=== PATIENT | male | born 1945 | race Caucasian/White ===

== ENCOUNTER → 2019-11-07 11:22 | Outpatient (CLI) | payer MEDICARE, BC, SELFPAY ==
[2019-11-07 12:54] LABS: Blood Urea Nitrogen 15 mg/dL (7-18); Creatinine,Serum 0.97 mg/dL (0.70-1.30); Estimated Glomerular Filt Rate 75 ml/min (>60); GFR (African American) 91 ML/MIN (>60)
== END ==
DX: Z01.818 Encounter for other preprocedural examination (principal); L98.9 Disorder of the skin and subcutaneous tissue, unspecified
CPT/HCPCS: 36415; 82565; 84520

== ENCOUNTER → 2019-11-08 09:26 | Outpatient (CLI) | payer MEDICARE, BC, SELFPAY ==
--- NOTE | 2019-11-08 09:29 | CT_ITS ---
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 All CT scans at the facility use one or more dose reduction, viz: automated exposure control, ma/kV adjustment per patient size (including targeted exams where dose is matched to indication, i.e. head), or iterative reconstruction technique. FINDINGS: Axial images are obtained without and with contrast. No midline shift, mass effect, intracranial hemorrhage, hydrocephalus, or enhancing lesion is evident. There is generalized atrophy with periventricular ischemic gliotic changes. 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 No intracranial enhancing lesions are evident. There is a cutaneous mass involving the left ear the external ear anteriorly at the region of the helix and superior to the tragus. This extends anteriorly are for a nearly 3 cm and is 0.8 cm in thickness. This does not extend to the bone. No mastoid effusion or sinus air-fluid level. IMPRESSION: 1. No evidence of intracranial metastasis. 2. Atrophy with chronic ischemic changes. 3. 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 Dictated by: Moise Andino MD 11/08/2019 17:00 Electronically signed by Moise Andino MD in [place] 11/08/2019 17:00
--- NOTE | 2019-11-08 09:29 | CT_ITS ---
PROCEDURE: CT SOFT TISSUE NECK W CON CLINICAL HISTORY: Squamous cell carcinoma above the left ear, evaluate for lymphadenopathy COMPARISON: No exams were available for comparison TECHNIQUE: Oral Contrast: 75ml Optiray 350 IV Contrast: None Axial images obtained with sagittal and coronal reformats. All CT scans at the facility use one or more dose reduction, viz: automated exposure control, ma/kV adjustment per patient size (including targeted exams where dose is matched to indication, i.e. head), or iterative reconstruction technique. FINDINGS: There is a cutaneous mass along the anterior aspect of the left ear beginning at the helix area superior to the tragus and extending anteriorly for a length 3 cm and a depth of 1.2 cm.. There does appear to be a fat plane preserved between the cutaneous lesion and the underlying posterior aspect of the temporalis muscle. Lesion does not appear to be involving the parotid gland. No cervical adenopathy evident. No bony involvement. The epiglottis, glottic region, and subglottic area are unremarkable. Submandibular glands are unremarkable. There are 2 nodules of the right lobe of the thyroid gland the largest at 1.7 by 1.1 cm with a smaller lesion at 0.8 cm. There also appears to be a nodule of the lower pole of the left lobe at 1.1 cm. There are centrilobular emphysematous changes in the lung apices. IMPRESSION: 1. Cutaneous mass along the left ear anteriorly consistent with patient's known squamous cell carcinoma. There does not appear to be gross deep musculature, bony, or parotid involvement 2. No obvious cervical adenopathy 3. Bilateral thyroid nodules measuring up to 1.7 cm on the right which may be better evaluated with ultrasound Dictated by: Moise Andino MD 11/09/2019 07:45 Electronically signed by Moise Andino MD in [place] 11/09/2019 07:45
== END ==
PROVIDERS: PCP Family Medicine
DX: K13.0 Diseases of lips (principal); L98.9 Disorder of the skin and subcutaneous tissue, unspecified
CPT/HCPCS: 70470; 70491

== ENCOUNTER → 2020-03-22 09:47 | Outpatient (CLI) | payer MEDICARE, BC, SELFPAY ==
[2020-03-23 09:59] LABS: Covid-19 Nasal PCR Sendout Lex NOT DETECTED
--- NOTE | 2020-03-23 10:33 | PC.NURSE ---
1033 dr. miller notified of negative COVID-19 RESULTS 1035 PT NOTIFIED OF NEGATIVE COVID-19 RESULT, RESULTS FAXED TO DERMATOLOGY OFFICE
== END ==
PROVIDERS: Visit Provider Dermatology MOHS-Micrographic Surgery
DX: Z03.818 Encounter for observation for suspected exposure to other biological agents ruled out
CPT/HCPCS: U0003

== ENCOUNTER 2021-11-15 10:12 | Emergency (ER) | payer MEDICARE, BC, SELFPAY ==
[2021-11-15 10:14] VITALS: BP 175/97; PULSE 57; RESP 18; TEMP 36.6; O2SAT 98; BMI 20.3; BMI 21.7
--- NOTE | 2021-11-15 10:24 | CT_ITS ---
PROCEDURE INFORMATION: Exam: CT Head Without Contrast Exam date and time: 11/15/2021 10:24 AM Age: 76 years old Clinical indication: Injury or trauma; Blunt trauma (contusions or hematomas); Injury details: Fall laceration lt forehead; Additional info: Fall head injury, takes plavix. History of squamous cell carcinoma left ear TECHNIQUE: Imaging protocol: Computed tomography of the head without contrast. Radiation optimization: All CT scans at this facility use at least one of these dose optimization techniques: automated exposure control; mA and/or kV adjustment per patient size (includes targeted exams where dose is matched to clinical indication); or iterative reconstruction. COMPARISON: CT HEAD/BRAIN WO/W CON 11/08/2019 10:32 AM FINDINGS: Brain: No acute intracranial findings. No intracranial hemorrhage. No edema, swelling or mass-effect. There is mild to moderate generalized cerebral atrophy. There are chronic infarcts of medial left occipital lobe cortex and adjacent white matter, and involving the anterior capsule and head of caudate nucleus on the left, and tiny lesion in left basal ganglia, which are unchanged. Chronic patchy white matter disease in both cerebral hemispheres. Cerebral ventricles: The ventricles are normal for age. No hydrocephalus. Paranasal sinuses: No acute findings in the visualized sinuses. No significant sinus opacification or air-fluid levels. Mild bilateral ethmoid mucosal thickening. Mastoid air cells: Mastoids are unremarkable as visualized, no effusions. Orbital cavity: No acute intraorbital findings. Findings of bilateral lens replacement surgeries. Vasculature: There are atherosclerotic calcified plaques in the intracranial carotid and vertebral arteries. Bones/joints: No acute skull fracture. No lytic lesions. Soft tissues: Left frontal scalp contusion with small cephalhematoma.No radiopaque foreign bodies seen. Chronic left auricular asymmetric cutaneous thickening, no interval change, previously reported corresponding with site of previous squamous cell carcinoma series 3, image 5. IMPRESSION: 1. No acute intracranial injury or skull fracture. 2. There is no CT evidence of intracranial mass, intracranial hemorrhage, or acute infarct. 3. Chronic senescent changes and old ischemic infarcts as detailed above. No acute intracranial findings compared with 11/08/2019. 4. Left frontal scalp contusion with small cephalhematoma. 5. Additional nonemergency and chronic findings as above.
--- NOTE | 2021-11-15 10:25 | CT_ITS ---
PROCEDURE INFORMATION: Exam: CT Cervical Spine Without Contrast Exam date and time: 11/15/2021 10:25 AM Age: 76 years old Clinical indication: Injury or trauma; Blunt trauma; Injury date: 11/15/21; Injury details: Fall laceration to lt forehead . History of squamous cell carcinoma. TECHNIQUE: Imaging protocol: Computed tomography images of the cervical spine without contrast. Radiation optimization: All CT scans at this facility use at least one of these dose optimization techniques: automated exposure control; mA and/or kV adjustment per patient size (includes targeted exams where dose is matched to clinical indication); or iterative reconstruction. COMPARISON: CT SOFT TISSUE NECK W CON 11/08/2019 10:28 AM FINDINGS: Bones/joints: No acute fracture or high-grade listhesis. There is minimal degenerative anterolisthesis at C6-C7 and C7-T1 levels of approximately 2 mm, which is chronic compared with the prior CT. Multilevel cervical facet arthropathy, greatest at the C4-C5 through C7-T1 levels. No high-grade listhesis. There are no lytic skeletal lesions seen. Mild degenerative osteoarthrosis anteriorly at C1-C2 with small periarticular spurs and some soft tissue calcifications. Discs/Spinal canal/Neural foramina: Degenerative disc disease and spondylosis at C3-C4 through C7-T1 levels. Discs and osteophytes indent the thecal sac, minimally narrowing the central spinal canal, but there is no high grade spinal stenosis. There are lateral uncovertebral spurs greatest toward the left at C3-C4, toward the right at C4-C5, C5-C6. There is multilevel foraminal stenosis due to posterolateral disc-osteophyte complexes and facet hypertrophy. Foraminal stenoses appear moderately severe at the left C4 foramen and right C6 foramina, and moderate to moderately severe at the C5 foramina and right C7 foramen, [id number] at other levels. Thyroid: Chronic thyroid nodules, largest nodule on the right approximate 1.7 cm as reported on the prior exam, series 4, image 77. Lungs: There is a chronic 9 mm soft tissue nodular density in the anterior right lung apex, series 3, images 84-86, but this is unchanged compared with 11/08/2019. There is chronic bilateral apical pulmonary interstitial scarring. No acute findings in the visualized lung apices. Vasculature: Atherosclerotic calcified plaques in the cervical carotid arteries. Soft tissues: No acute findings in the soft tissues. No prevertebral swelling. No organized hematoma. Chronic calcifications in the tonsillar pillars and base of tongue consistent with old healed infection. 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 IMPRESSION: 1. No acute fracture or high-grade listhesis. 2. Multilevel degenerative disc disease, spondylosis, and facet arthropathy as detailed above with some chronic mild subluxations. 3. No significant central spinal stenosis. 4. Multilevel foraminal stenoses, which appear greatest at the C4 through C6 foramina as detailed above. 5. Additional nonemergency and chronic findings as above, including 9 mm right apical pulmonary nodule unchanged, and chronic 1.7 cm right thyroid nodule, unchanged. COMMENTS: Consistent with the [employer]'s Incidental Findings Committee white paper (J Am Laura Radiol 2015): In patients aged 35 years and older with an incidental thyroid nodule equal to or greater than 1.[address], MRI or extrathyroidal US, further evaluation with dedicated thyroid US is recommended for patients with normal life expectancy and without comorbid
--- NOTE | 2021-11-15 10:26 | XR_ITS ---
PROCEDURE INFORMATION: Exam: XR Left Hand Exam date and time: 11/15/2021 10:26 AM Age: 76 years old Clinical indication: Injury or trauma; Fall; Blunt trauma (contusions or hematomas); Hand; Left; Injury date: 11/15/21; Injury details: Laceration to 2nd and third knuckle TECHNIQUE: Imaging protocol: XR Left hand. Views: 3 or more views. COMPARISON: No relevant prior studies available. FINDINGS: Bones/joints: Osteopenia. No definite acute fracture or dislocation. 1 mm calcification abutting the tip of the ulnar styloid process which may be chronic and degenerative or due to old trauma rather than acute in nature. Specifically, bones at the 2nd and 3rd MCP joints appear intact and normally aligned. Mild degenerative arthritic changes greatest in the thumb, with joint narrowing at 1st carpal-metacarpal, MCP and IP joints, some small periarticular spurs, and minimal soft tissue calcification interposed between bases of 1st and 2nd metacarpal bones. Slight narrowing of PIP joints. There are no lytic skeletal lesions seen. No erosive changes. Soft tissues: The soft tissue laceration to the knuckles is suboptimally visualized, there is slight irregularity of the skin at the dorsal aspect of the hand. No radiopaque foreign bodies in the soft tissues. No significant soft tissue emphysema. IMPRESSION: 1. No acute fracture or dislocation. 2. No radiopaque foreign bodies in the soft tissues. 3. Chronic degenerative changes, as above.
--- NOTE | 2021-11-15 13:27 | [facility].EDGENADL ---
ED Disposition Clinical Impression: Forehead contusion Qualifiers: Encounter type: initial encounter Qualified Code(s): S00.83XA - Contusion of other part of head, initial encounter Forehead abrasion Qualifiers: Encounter type: initial encounter Qualified Code(s): S00.81XA - Abrasion of other part of head, initial encounter Skin tear of hand without complication Qualifiers: Encounter type: initial encounter Laterality: left Qualified Code(s): S61.412A - Laceration without foreign body of left hand, initial encounter Disposition: Home, Self-Care Condition on Discharge: Good Instructions: DI for Closed Head Injury, DI for Abrasion Additional Instructions: Clean abrasions daily with soap and water, apply Neosporin or Polysporin ointment and bandage. Tylenol as needed for pain. Additional instructions for HEAD INJURY: Return immediately if severe headache, vomiting, problems with vision or speech, numbness or weakness of the extremities, or severe neck pain. Referrals: Vincenzo Tyson MD [Primary Care Provider] - - Critical Care Critical Care Time: No Attestation: On 11/15/21, the high probability of a clinically significant, sudden or life threatening deterioration of the following system(s) required my full and direct attention, intervention and personal management. The time I documented below is in addition to time spent performing reported procedures but includes the following listed in this critical care notation. Medical Decision Making - Cali Inquiry Pt receiving controlled substance: No Vital Signs: 11/15/21 10:14 Temperature 98 F Temperature Source Oral Pulse Rate [Radial] 57 L Respiratory Rate 18 Blood Pressure [Right Arm] 175/97 H Blood Pressure Mean [Right Arm] 123 Blood Pressure Position [Right Arm] Sitting 02 Sat by Pulse Oximetry 98 Oxygen Delivery Method Room Air Orders (Tests/Meds): ED MEDICATIONS Discontinued Medications Generic Name Dose Route Start Last Admin Trade Name Freq PRN Reason Stop Dose Admin Tetanus/Reduced Diphtheria/Acell Pertussis 0.5 ml 11/15/21 10:26 11/15/21 13:42 Tet/Diphth/Pert-Adult 0.5ml Syringe IM 11/15/21 10:27 0.5 ml .ONCE ONE Administration - Radiology Data #1 Image(s): Hand Image Reviewed: Yes I reviewed the patient's radiology image PROCEDURE INFORMATION: Exam: XR Left Hand Exam date and time: 11/15/2021 10:26 AM Age: 76 years old Clinical indication: Injury or trauma; Fall; Blunt trauma (contusions or hematomas); Hand; Left; Injury date: 11/15/21; Injury details: Laceration to 2nd and third knuckle TECHNIQUE: Imaging protocol: XR Left hand. Views: 3 or more views. COMPARISON: No relevant prior studies available. FINDINGS: Bones/joints: Osteopenia. No definite acute fracture or dislocation. 1 mm calcification abutting the tip of the ulnar styloid process which may be chronic and degenerative or due to old trauma rather than acute in nature. Specifically, bones at the 2nd and 3rd MCP joints appear intact and normally aligned. Mild degenerative arthritic changes greatest in the thumb, with joint narrowing at 1st carpal-metacarpal, MCP and IP joints, some small periarticular spurs, and minimal soft tissue calcification interposed between bases of 1st and 2nd metacarpal bones. Slight narrowing of PIP joints. There are no lytic skeletal lesions seen. No erosive changes. Soft tissues: The soft tissue laceration to the knuckles is suboptimally visualized, there is slight irregularity of the skin at the dorsal aspect of the hand. No radiopaque foreign bodies in the soft tissues. No significant soft tissue emphysema. IMPRESSION: 1. No acute fracture or dislocation. 2. No radiopaque foreign bodies in the soft tissues. 3. Chronic degenerative changes, as above. - CT Data CT Scan: Head, C-Sp
[2021-11-15 14:00] VITALS: BP 168/87; PULSE 60; RESP 16; TEMP 36.8; O2SAT 98
== END 2021-11-15 14:00 | disposition home or self-care (01) ==
PROVIDERS: Emergency Provider Emergency Medicine; PCP Family Medicine
DX: S00.83XA Contusion of other part of head, initial encounter (principal); S00.81XA Abrasion of other part of head, initial encounter; S61.412A Laceration without foreign body of left hand, initial encounter; W18.00XA Striking against unspecified object with subsequent fall, initial encounter; Y92.018 Other place in single-family (private) house as the place of occurrence of the external cause; F17.210 Nicotine dependence, cigarettes, uncomplicated; Z23 Encounter for immunization
CPT/HCPCS: 70450; 72125; 73130; 90471; 90715; 99282

== ENCOUNTER 2023-08-30 08:15 | Emergency (ER) | payer MEDICARE, BC, SELFPAY ==
[2023-08-30] VITALS (9 sets, daily range): BP systolic 130–196; BP diastolic 76–90; PULSE 50–60; RESP 17–18; TEMP 36.4; O2SAT 96–99; BMI 19.0
--- NOTE | 2023-08-30 08:26 | PC.NURSE ---
Dr. Dye at [facility] for pt eval
--- NOTE | 2023-08-30 08:31 | CT_ITS ---
FINAL REPORT CLINICAL HISTORY: RLQ pain/R flank pain COMPARISON: None FINDINGS: CT OF THE ABDOMEN AND PELVIS WITH CONTRAST Axial CT images of the abdomen and pelvis were obtained after the administration of IV contrast. Coronal reformatted images were also obtained and reviewed. This study was performed with techniques to keep radiation doses as low as reasonably achievable (ALARA). Individualized dose reduction techniques using automated exposure control or adjustment of mA and/or kV according to the patient's size were employed. Abdomen: There is a 6 mm pleural-based nodule in the lateral left right lower lobe. There is mild bibasilar atelectasis or scar. The heart is normal in size. The liver has an unremarkable appearance, without evidence of mass or biliary ductal dilatation. Gallbladder is absent. The spleen is unremarkable. There is a 4 cm right adrenal mass. The left adrenal gland is enlarged with a 1.5 cm nodular component. These do not have the appearance of typical adenomas. Metastases are not excluded. The pancreas has an unremarkable appearance. There is a 3 mm nonobstructing left renal stone. The aorta is normal in caliber. There is a 12 mm left abdominal mesenteric node. There are multiple small retroperitoneal nodes which are nonspecific, and favored to be reactive or neoplastic. Pelvis: The appendix is not well-visualized. The urinary bladder is unremarkable. There is a soft tissue nodule in the right anterior pelvis measuring 2.4 x 1.9 cm seen on axial image 91 of uncertain etiology which may reflect adenoma or other mass. There is severe sigmoid diverticulosis. There is no evidence of bowel obstruction. 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 Metastases are not excluded. Right lower lobe nodule, granuloma versus neoplasm. Right anterior pelvic mass, adenopathy versus other mass. Recommend follow-up PET/CT for further evaluation of the above. Reviewed, Interpreted and Dictated by Johnny Barrera III, MD Transcribed by Anna Marie Lepe Authenticated and . [facility]
--- NOTE | 2023-08-30 08:49 | HMH.EDGENADL ---
Discharge Plan Disposition Patient Disposition: Home, Self-Care Prescriptions Prescriptions: New oxycodone 5 mg tablet 5 mg PO Q8H PRN (Reason: pain) Qty: 12 0RF Rx Instructions: Severe pain not responsive to Tylenol and ibuprofen. No Action atorvastatin 40 MG tablet 40 mg PO HS hydralazine 10 MG tablet 10 mg PO DAILY atenolol 100 MG tablet 100 mg PO DAILY phenytoin sodium extended 100 MG capsule 100 mg PO DAILY clopidogrel 75 MG tablet 75 mg PO DAILY ramipril 10 MG capsule 10 mg PO DAILY clindamycin HCl 300 MG capsule 300 mg PO Q8 10 Days Qty: 30 0RF Referrals Follow up/Referrals: Renae Cortes MD [Staff Physician] - See instructions Provider,Referral, [Primary Care Provider] - See instructions Activity Restrictions/Add. Instructions Additional Instructions/Restrictions: At this time is felt you are safe to be discharged home. If new or worsening symptoms please do not hesitate to return the emergency department. Please continue to follow-up outpatient with Dr. Cortes as discussed. Please take your medication as prescribed. Clinical Impressions Clinical Impression: Abdominal or pelvic swelling, mass or lump, unspecified site, Adrenal mass Discharge ED Provider: Doc Dye General Adult HPI General Chief complaint: Abdominal Pain Stated complaint: back and Rt side pain, no accident Time Seen by Provider: 08/30/23 08:19 History of Present Illness HPI narrative: Patient is a 77-year-old male with remote history of hernia status post repair, status postcholecystectomy presents emergency department for evaluation of abdominal pain. Onset was acute, over the last 24 hours, right lower quadrant, moderate to severe in intensity. It radiates into his right flank. Still voiding and stooling. No other acute complaints at this time. Related Data Home Medications Medication Instructions Recorded Confirmed atenolol 100 mg tablet 100 mg PO DAILY Hypertension 09/09/19 09/09/19 atorvastatin 40 mg tablet 40 mg PO HS Cholesterol 09/09/19 09/09/19 clopidogrel 75 mg tablet 75 mg PO DAILY HEART 09/09/19 09/09/19 hydralazine 10 mg tablet 10 mg PO DAILY Hypertension 09/09/19 09/09/19 phenytoin sodium extended 100 mg 100 mg PO DAILY SEIZURES 09/09/19 09/09/19 capsule ramipril 10 mg capsule 10 mg PO DAILY Hypertension 09/09/19 09/09/19 Previous Rx's Medication Instructions Recorded clindamycin HCl 300 mg capsule 300 mg PO Q8 10 days #30 caps 09/09/19 oxycodone 5 mg tablet 5 mg PO Q8H PRN pain #12 tabs 08/30/23 Allergies Allergy/AdvReac Type Severity Reaction Status Date / Time indomethacin [From INDOCIN] Allergy Unknown SEIZURES Verified 11/15/21 13:42 [facility] Disclaimer: The information contained in this section may have been updated after the patient was seen, as this information can be updated by other users. Social History Smoking Status: Current some day smoker tobacco type: cigarettes packs per day: 1 alcohol intake: never current occupational status: other Travel in the last 8 weeks: None ROS Obtained: Yes Systems reviewed as appropriate & no additional complaints except as documented Physical Exam General General appearance: alert and in no apparent distress Head Head exam: atraumatic and normocephalic Eye Eye exam: Present PERRL and EOMI ENT ENT exam: Present mucous membranes moist Neck Neck exam: Present normal inspection Chest Chest inspection: Present normal inspection and symmetric chest wall rise Respiratory Respiratory exam: Present normal lung sounds bilaterally; Absent respiratory distress Cardiovascular Cardiovascular exam: Present regular rate and normal rhythm Abdominal Exam Abdominal exam: Present soft and tenderness (Right lower quadrant); Absent rigidity Extremities Exam Extremities exam: Present normal inspection Neurological Exam Neurological exam: Present alert Psychiatric Psychiatric
[2023-08-30 09:02] LABS: Basophils % 0.3 % (0.1-2.0); Eosinophils # 0.1 K/mm3 (0.0-0.4); Hematocrit 42.5 % (42.0-52.0); Hemoglobin 13.8 g/dL (14.1-18.0); Lymphocytes # 1.3 K/mm3 (0.7-4.5); Lymphocytes % 11.9 % (10-50); Mean Corpuscular HGB Conc 32.4 g/dL (31.8-35.4); Mean Corpuscular Hemoglobin 31.9 pg (27.0-31.2); Mean Corpuscular Volume 98.4 fl (80-94); Mean Platelet Volume 7.6 fl (7.4-10.4); Monocytes # 0.5 K/mm3 (0.1-1.0); Monocytes % 4.8 % (1.7-9.3); Neutrophils # 8.9 K/mm3 (1.8-7.8); Neutrophils % 82.1 % (37.0-80.0); Platelet Count 367 K/mm3 (142-424); Red Blood Count 4.32 M/mm3 (4.60-6.20); Red Cell Distribution Width 14.1 % (11.5-17.5); White Blood Count 10.8 K/mm3 (4.8-10.8)
[2023-08-30 09:11] LABS: Alanine Aminotransferase 17 U/L (12-78); Albumin Level 3.8 g/dl (3.5-5.0); Alkaline Phosphatase 133 U/L (38-126); Anion Gap 12.8 mEq/L (5-15); Aspartate Amino Transferase 25 U/L (17-59); Bilirubin,Total 0.5 mg/dl (0.2-1.3); Blood Urea Nitrogen 15 mg/dl (9-20); Calcium 8.5 mg/dl (8.4-10.2); Carbon Dioxide 24 mmol/L (22.0-30.0); Chloride 105 mmol/L (98-107); Estimated Glomerular Filt Rate 130 ml/min (>60); GFR (African American) 158 ML/MIN (>60); Glucose 170 mg/dl (74-100); Lipase 57 U/L (23-300); Potassium 3.8 mmoL/L (3.5-5.1); Sodium 138 mmol/L (136-145); Total Protein,Serum 7.8 g/dl (6.3-8.2)
[2023-08-30 09:50] LABS: Creatinine Clearance Estimated 55 mL/min (50-200)
[2023-08-30 09:52] LABS: Microscopic, Urine URINE MICROSCOPIC (MICROSCOPIC)
--- NOTE | 2023-08-30 09:59 | PC.NURSE ---
PT TO CT
[2023-08-30 10:03] LABS: Appearance,Urine CLEAR (Clear); Bilirubin,Urine Negative (Negative); Blood, Urine Negative (Negative); Color,Urine YELLOW (Yellow); Glucose,Urine (UA) Negative (Negative); Ketones,Urine 1+ (Negative); Leukocyte Esterase,Urine Negative (Negative); Nitrate,Urine Negative (Negative); Protein,Urine Negative (Negative); Urobilinogen,Urine 0.2 EU/dl (0.2)
--- NOTE | 2023-08-30 10:09 | PC.NURSE ---
pt was adjusted in bed covered back up did state he was still having back pain, nurses and er md aware, call light and daughter at bs
--- NOTE | 2023-08-30 10:11 | PC.NURSE ---
Zohaib lee called stating pt's IV would not flush, asked for someone to start new line. Pt is in the upstairs CT. zone supervisor firearms is available to check IV.
[2023-08-30 10:36] LABS: Squamous Epithelial Cell,Urine Occasional #/hpf (0-5); WBC,Urine Occasional #/hpf (0-3)
--- NOTE | 2023-08-30 10:44 | PC.NURSE ---
Pt visitor advised that pt was still in pain. Dr. Dye notified.
--- NOTE | 2023-08-30 10:49 | PC.NURSE ---
Dr. Dye at to reevaluate pt
--- NOTE | 2023-08-30 10:59 | PC.NURSE ---
Pt assisted to stand and use urinal. Pt voiced no other needs at this time. Call light within reach.
--- NOTE | 2023-08-30 11:33 | PC.NURSE ---
Called [facility] to have them check the status of CT scan read
--- NOTE | 2023-08-30 11:37 | PC.NURSE ---
Updated pt/visitor that we are waiting on CT reports. They voiced understanding. No other needs voiced.
--- NOTE | 2023-08-30 11:41 | PC.NURSE ---
DR CLOUD AT BEDSIDE
--- NOTE | 2023-08-30 11:42 | PC.NURSE ---
Dr. Dye at [facility] to update pt/visitor on POC
--- NOTE | 2023-08-30 11:55 | PC.NURSE ---
ca;;ed [facility] for a consult with Oncology. Was put on hold wjile waiting. [facility] came back online and had Dr. Wilks to speak with our ER Doctor.
--- NOTE | 2023-08-30 11:58 | PC.NURSE ---
Pt placed on wait list at . Calling [facility] at this time.
--- NOTE | 2023-08-30 12:03 | PC.NURSE ---
called [facility] per ER Doctor to consult with Oncology about this Pt. [facility] took all the info and advised they would call back as soon as they made contact with the Oncologist.
--- NOTE | 2023-08-30 12:06 | PC.NURSE ---
[facility] just called back and ER Doctor speaking with Dr. Chase Reyes
--- NOTE | 2023-08-30 12:17 | PC.NURSE ---
Waiting for call back from hospitalist at this time
--- NOTE | 2023-08-30 12:32 | PC.NURSE ---
Dr. Dye speaking with hospitalist at [facility]
--- NOTE | 2023-08-30 12:33 | PC.NURSE ---
[facility] called back. a Dr Noyola to speak with our ER Doctor
--- NOTE | 2023-08-30 12:44 | PC.NURSE ---
Dr. Dye advised he will be discharging pt to follow up outpatient
--- NOTE | 2023-08-30 13:03 | PC.NURSE ---
let pt & his family know of the appt with Dr. Cortes date & time. Discharge instruction reviewed with pt & family.
--- NOTE | 2023-08-30 13:03 | PC.NURSE ---
Pt has a follow up appointment with Dr. Cortes on 09/02 in specialty clinic
== END 2023-08-30 13:56 | disposition home or self-care (01) ==
PROVIDERS: Emergency Provider Emergency Medicine
DX: R10.31 Right lower quadrant pain (principal); R19.00 Intra-abdominal and pelvic swelling, mass and lump, unspecified site; E27.8 Other specified disorders of adrenal gland
CPT/HCPCS: 74177; 80053; 81001; 83690; 85025; 96361; 96374; 96375; 99285; J0131; Q9967

== ENCOUNTER 2023-09-30 14:52 | Outpatient (CLI) | payer MEDICARE, BC, SELFPAY ==
[2023-09-30 15:08] VITALS: BMI 19.2
--- NOTE | 2023-09-30 15:17 | PC.NURSE ---
1517-collected labs via venipuncture stick in left ac; pt d/c home.
[2023-09-30 15:23] LABS: Basophils % 0.3 % (0.1-2.0); Eosinophils # 0.3 K/mm3 (0.0-0.4); Eosinophils % 3.4 % (0.1-12.0); Hematocrit 26.5 % (42.0-52.0); Hemoglobin 9.1 g/dL (14.1-18.0); Lymphocytes # 1.4 K/mm3 (0.7-4.5); Lymphocytes % 13.4 % (10-50); Mean Corpuscular HGB Conc 34.4 g/dL (31.8-35.4); Mean Corpuscular Hemoglobin 34.3 pg (27.0-31.2); Mean Corpuscular Volume 99.7 fl (80-94); Mean Platelet Volume 8.9 fl (7.4-10.4); Monocytes # 0.7 K/mm3 (0.1-1.0); Monocytes % 6.4 % (1.7-9.3); Neutrophils # 7.7 K/mm3 (1.8-7.8); Neutrophils % 76.4 % (37.0-80.0); Platelet Count 336 K/mm3 (142-424); Red Blood Count 2.66 M/mm3 (4.60-6.20); Red Cell Distribution Width 15.2 % (11.5-17.5); White Blood Count 10.1 K/mm3 (4.8-10.8)
[2023-09-30 15:37] LABS: Alanine Aminotransferase 19 U/L (12-78); Albumin Level 3.3 g/dl (3.5-5.0); Alkaline Phosphatase 113 U/L (38-126); Anion Gap 12.4 mEq/L (5-15); Aspartate Amino Transferase 30 U/L (17-59); Bilirubin,Total 0.8 mg/dl (0.2-1.3); Blood Urea Nitrogen 18 mg/dl (9-20); Calcium 7.9 mg/dl (8.4-10.2); Carbon Dioxide 25 mmol/L (22.0-30.0); Chloride 102 mmol/L (98-107); Creatinine Clearance Estimated 55 mL/min (50-200); Estimated Glomerular Filt Rate 109 ml/min (>60); GFR (African American) 132 ML/MIN (>60); Globulin 3.3 g/dL (1.3-3.2); Glucose 106 mg/dl (74-100); Potassium 3.4 mmoL/L (3.5-5.1); Sodium 136 mmol/L (136-145); Total Protein,Serum 6.6 g/dl (6.3-8.2)
--- NOTE | 2023-11-05 15:10 | DIET.NUTRFU ---
Chemo consult, patient has lung Ca and taking pembrolizumab. Reported no side effects, wt stable. Provided contact information for future considers.
== END 2023-09-30 15:17 | disposition home or self-care (01) ==
LOC: INF 14:53
PROVIDERS: PCP Internal Medicine Medical Oncology; Visit Provider Internal Medicine Medical Oncology
DX: E27.8 Other specified disorders of adrenal gland (principal)
CPT/HCPCS: 36415; 80053; 85025

== ENCOUNTER → 2023-10-01 17:08 | Outpatient (CLI) | payer MEDICARE, BC, SELFPAY ==
--- NOTE | 2023-10-01 17:14 | MR_ITS ---
PROCEDURE INFORMATION: Exam: MR Head Without and With Contrast Exam date and time: 10/01/2023 5:18 PM Age: 78 years old Clinical indication: Other: Abnormal pet findings; Additional info: Due to findings on pet scan. Lung, adrenal and thyroid cancer TECHNIQUE: Imaging protocol: Magnetic resonance imaging of the head without and with contrast. 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 There is an old hemorrhagic lacunar type infarct in the caudate nucleus head and adjacent corpus striatum. Small region of chronic encephalomalacia present in the left occipital lobe posteriorly is unchanged. No acute infarct. No acute hemorrhage. Stable involutional changes of the brain. No mass effect. No abnormal enhancement on postcontrast imaging. Focus of hemosiderin staining in the left temporal lobe is likely related to prior hypertensive microhemorrhage. Cerebral ventricles: Stable ventricular size. No ventriculomegaly. Bones/joints: Unremarkable. Paranasal sinuses: Normal as visualized. No acute sinusitis. Mastoid air cells: Normal as visualized. No mastoid effusion. Orbital cavities: Unremarkable. Soft tissues: Unremarkable. IMPRESSION: No acute intracranial abnormality. No intracranial metastatic disease identified.
== END ==
PROVIDERS: PCP Family Medicine; Visit Provider Internal Medicine Medical Oncology
DX: E27.8 Other specified disorders of adrenal gland (principal)
CPT/HCPCS: 70553; 88173; 88305; 88341; 88342; 88360; A9576

== ENCOUNTER 2023-10-04 06:52 | Outpatient (CLI) | payer MEDICARE, BC, SELFPAY ==
[2023-10-04] VITALS (8 sets, daily range): BP systolic 130–144; BP diastolic 71–77; PULSE 57–67; RESP 14–18; TEMP 36.4–36.5; O2SAT 95–100; BMI 18.3
--- NOTE | 2023-10-04 07:10 | US_ITS ---
FINAL REPORT CLINICAL HISTORY: ABN PET SCAN COMPARISON: None FINDINGS: THYROID ULTRASOUND: The right lobe of the thyroid gland measures 4.7 x 1.8 x 1.6 cm in size. The dominant mass in the right thyroid gland is in the lower pole, measures 1.5 cm in diameter, is mixed cystic and solid, and a TI-RADS 4 category nodule. Several other smaller nodules are present. The left lobe of the thyroid gland measures 5 x 1.8 x 1.5 cm in size. The dominant mass in the left thyroid gland is in the lower pole, measures 1.5 cm in diameter, and is also a TI-RADS category 4 nodule. Several other smaller nodules are present as well. The isthmus is normal in appearance and measures 4 mm in thickness. IMPRESSION: The right lower pole dominant nodule is a 1.5 cm in diameter TI-RADS category 4 nodule, which according to TI-RADS criteria should be biopsied. The left lower pole dominant nodule is a 1.5 cm in diameter TI-RADS category 4 nodule, which according to TI-RADS criteria should also be biopsied. Reviewed, Interpreted and Dictated by Arsenio Rodríguez MD Transcribed by Yvrose Levine Authenticated and . [facility]
--- NOTE | 2023-10-04 07:16 | CT_ITS ---
FINAL REPORT CLINICAL HISTORY: bx FINDINGS: CT GUIDED LEFT ADRENAL MASS BIOPSY HISTORY: Left lung mass/bilateral adrenal masses. ATTENDING PHYSICIAN: Dr. Rodríguez PHYSICIAN SPECIAL CERTIFICATE DICTATOR: Erna Awan PA-C CONSCIOUS SEDATION: Was provided by anesthesia service, not radiology. Continuous vital sign monitoring was also performed by anesthesia throughout the procedure. TECHNIQUE: Informed consent was obtained from the patient. A time-out procedure was performed. The left lower back was prepped in a routine sterile fashion and locally anesthetized with 1% lidocaine. Using CT guidance a 19 gauge guide needle was directed toward the left adrenal mass. The needle was positioned within the outer periphery of the lesion. Coaxial technique was utilized. A total of four 22-gauge FNA passes were made. An attempt was made to do a 20-gauge core, but no tissue could be obtained. CT-guidance was utilized for this procedure. Limited postbiopsy CT showed no evidence of significant pneumothorax in the lung bases or evidence of other complication. Procedure was well tolerated . CONCLUSION: 1. Technically successful CT guided biopsy of a left adrenal mass as above. 2. Intravenous conscious sedation was provided by the anesthesia service. Reviewed, Interpreted and Dictated by Arsenio Rodríguez MD Transcribed by Erna Awan PA-C Authenticated and [facility]
--- NOTE | 2023-10-04 08:25 | P.PNANES_ITS ---
[facility] Disclaimer: The information contained in this section may have been updated after the patient was seen, as this information can be updated by other users. Medical History (Updated 10/04/23 @ 08:10 by Frieda Rock RN) Allergies Glaucoma History of cataract Hyperlipidemia Hypertension Seizure disorder Skin cancer Surgical History (Updated 10/04/23 @ 08:10 by Frieda Rock RN) History of cholecystectomy History of surgery S/P hernia surgery Family History (Updated 10/04/23 @ 08:10 by Frieda Rock RN) Other No significant family history Social History (Updated 10/04/23 @ 08:11 by Frieda Rock RN) Smoking Status: Current every day smoker tobacco type: cigarettes packs per day: 1 alcohol intake: never substance use type: denies use current occupational status: retired Travel in the last 8 weeks: None [facility] Anesthesia Checklist Patient Identification Patient Identification: Arm Band and Verbal (Name & ) Structural Data Admitted From: Home Planned Operative Procedure/s: CT-guided Bx Consent for Planned Operative Procedure(s) Verified: Yes Verified Documents: Surgical Consent and History and Physical NPO Status Verified Time NPO: 06:00 Chart Verification Results Verified: CBC, BMP and Chest Xray Additional verifications Patient : No Anesthesia Reactions: No Hx Blood Transfusions: No Blood Transfusion Reaction: No Cephalosporin Allergy: No Previous Colonoscopy: No Cardiovascular Assessment Heart Sounds: S1 & S2 Pulse Rhythm: Irregular Peripheral Edema: No Airway Assessment Mallampati Score:: Class II C-Spine Mobility Assessed: Yes TMJ Mobility Assessed: Yes Dentition: Poor Dentition (Majority of teeth missing. 4 teeth on bottom. Severely carried. Nothing loose per pt.) Neurological Assessment Level of Consciousness: Awake, Alert, Appropriate and Follows Commands Hx Seizures: Yes Numbness or tingling in extremities: No Anesthesia Plan Anesthesia Risk discussed: Yes Anesthesia Plan: Verified ASA Class: III Anesthesia Type: MAC
[2023-10-04 08:46] LABS: Basophils % 0.3 % (0.1-2.0); Eosinophils # 0.4 K/mm3 (0.0-0.4); Hematocrit 28.7 % (42.0-52.0); Hemoglobin 9.8 g/dL (14.1-18.0); Lymphocytes # 0.7 K/mm3 (0.7-4.5); Lymphocytes % 6.8 % (10-50); Mean Corpuscular HGB Conc 34.2 g/dL (31.8-35.4); Mean Corpuscular Hemoglobin 34.4 pg (27.0-31.2); Mean Corpuscular Volume 100.4 fl (80-94); Mean Platelet Volume 8.4 fl (7.4-10.4); Monocytes # 0.4 K/mm3 (0.1-1.0); Monocytes % 4.3 % (1.7-9.3); Neutrophils # 8.1 K/mm3 (1.8-7.8); Neutrophils % 84.6 % (37.0-80.0); Platelet Count 432 K/mm3 (142-424); Red Blood Count 2.86 M/mm3 (4.60-6.20); Red Cell Distribution Width 16.4 % (11.5-17.5); Reticulocyte % (Auto) 4.9 % (0.9-3.2); White Blood Count 9.5 K/mm3 (4.8-10.8)
[2023-10-04 09:11] LABS: Activated Partial Thrombo Time 29.3 seconds (22.8-30.6); Prothrombin Time 11.8 seconds (10.1-12.5)
[2023-10-04 09:28] LABS: Iron 121 ug/dL (49-181)
[2023-10-04 09:38] LABS: Total Iron Binding Capacity 194 ug/dL (261-462)
[2023-10-04 09:41] LABS: Lactate Dehydrogenase 344 U/L (313-618)
[2023-10-04 10:03] LABS: Ferritin 333 ng/ml (17.9-464)
[2023-10-04 10:51] LABS: Folate 3.99 ng/mL; Vitamin B12 < 159 pg/mL (239-931)
[2023-10-05 12:40] LABS: Haptoglobin 41 mg/dL (34-355)
== END 2023-10-04 13:45 | disposition home or self-care (01) ==
LOC: RAD 06:53
PROVIDERS: PCP Internal Medicine Medical Oncology; Visit Provider Internal Medicine Medical Oncology
DX: E27.8 Other specified disorders of adrenal gland; R93.89 Abnormal findings on diagnostic imaging of other specified body structures; D64.9 Anemia, unspecified; Z51.81 Encounter for therapeutic drug level monitoring; C34.92 Malignant neoplasm of unspecified part of left bronchus or lung
CPT/HCPCS: 49180; 76536; 77012; 82607; 82728; 82746; 83010; 83540; 83550; 83615; 85025; 85044; 85610; 85730; 86880; 88173; 88305; 88341; 88342; 88360

== ENCOUNTER 2023-10-12 16:05 | Outpatient (CLI) | payer MEDICARE, BC, SELFPAY ==
--- NOTE | 2023-10-12 16:24 | PC.NURSE ---
1624-collected guardant 360 labs and sent per [facility].
== END 2023-10-12 16:28 | disposition home or self-care (01) ==
LOC: INF 16:06
PROVIDERS: PCP Nurse Practitioner; Visit Provider Internal Medicine Medical Oncology
DX: E27.8 Other specified disorders of adrenal gland (principal)
CPT/HCPCS: G0463

== ENCOUNTER 2023-11-04 14:26 | Outpatient (CLI) | payer MEDICARE, BC, SELFPAY ==
[2023-11-04 14:34] VITALS: BMI 19.2
[2023-11-04 14:48] LABS: Basophils % 0.4 % (0.1-2.0); Eosinophils # 0.5 K/mm3 (0.0-0.4); Hematocrit 31.8 % (42.0-52.0); Hemoglobin 10.6 g/dL (14.1-18.0); Lymphocytes # 1.1 K/mm3 (0.7-4.5); Lymphocytes % 14.1 % (10-50); Mean Corpuscular HGB Conc 33.4 g/dL (31.8-35.4); Mean Corpuscular Hemoglobin 35.5 pg (27.0-31.2); Mean Corpuscular Volume 106.4 fl (80-94); Mean Platelet Volume 8.2 fl (7.4-10.4); Monocytes # 0.4 K/mm3 (0.1-1.0); Monocytes % 5.3 % (1.7-9.3); Neutrophils # 5.6 K/mm3 (1.8-7.8); Neutrophils % 74.2 % (37.0-80.0); Platelet Count 303 K/mm3 (142-424); Red Blood Count 2.98 M/mm3 (4.60-6.20); Red Cell Distribution Width 16.1 % (11.5-17.5); White Blood Count 7.5 K/mm3 (4.8-10.8)
[2023-11-04 14:57] LABS: Chloride 105 mmol/L (98-107); Potassium 5.5 mmoL/L (3.5-5.1); Sodium 134 mmol/L (136-145)
[2023-11-04 14:59] LABS: Alanine Aminotransferase 18 U/L (12-78); Alkaline Phosphatase 99 U/L (38-126); Aspartate Amino Transferase 47 U/L (17-59); Bilirubin,Total 1.6 mg/dl (0.2-1.3); Blood Urea Nitrogen 15 mg/dl (9-20); Creatinine Clearance Estimated 55 mL/min (50-200); Estimated Glomerular Filt Rate 130 ml/min (>60); GFR (African American) 157 ML/MIN (>60)
[2023-11-04 15:00] LABS: Albumin Level 3.9 g/dl (3.5-5.0); Albumin/Globulin Ratio 1.1 (1.1-1.8); Calcium 7.2 mg/dl (8.4-10.2); Globulin 3.5 g/dL (1.3-3.2); Glucose 93 mg/dl (74-100); Total Protein,Serum 7.4 g/dl (6.3-8.2)
[2023-11-04 15:30] LABS: Thyroid Stimulating Hormone 2.18 uIU/mL (0.465-4.68)
[2023-11-04] MEDS: PEMBROLIZUMAB 200 MG in 0.9 % SODIUM CHLORIDE 50 ML 116 MG IV (15:37)
[2023-11-04] MEDS: SODIUM CHLORIDE 0.9% 50ML BAG 50 ML IV (15:37)
[2023-11-04 15:40] VITALS: BP 132/66; PULSE 59; RESP 18; TEMP 36.7; O2SAT 98
[2023-11-04 15:55] VITALS: BP 120/89; PULSE 56; RESP 18
[2023-11-04 16:15] VITALS: RESP 18
[2023-11-04 16:23] VITALS: BP 132/67; PULSE 65; RESP 18; O2SAT 99
[2023-11-04 16:30] LABS: Anion Gap 7.5 mEq/L (5-15); Carbon Dioxide 27 mmol/L (22.0-30.0)
== END 2023-11-04 16:23 | disposition home or self-care (01) ==
LOC: INF 14:27
PROVIDERS: PCP Nurse Practitioner; Visit Provider Internal Medicine Medical Oncology
DX: R19.00 Intra-abdominal and pelvic swelling, mass and lump, unspecified site (principal); Z79.899 Other long term (current) drug therapy; C34.92 Malignant neoplasm of unspecified part of left bronchus or lung
CPT/HCPCS: 80053; 82533; 84443; 85025; 96413; J9271

== ENCOUNTER 2023-11-25 12:47 | Outpatient (CLI) | payer MEDICARE, BC, SELFPAY ==
[2023-11-25 12:54] VITALS: BMI 19.2
[2023-11-25 13:17] LABS: Basophils % 0.6 % (0.1-2.0); Eosinophils # 0.4 K/mm3 (0.0-0.4); Hematocrit 36.3 % (42.0-52.0); Hemoglobin 11.3 g/dL (14.1-18.0); Lymphocytes # 0.9 K/mm3 (0.7-4.5); Lymphocytes % 17.4 % (10-50); Mean Corpuscular HGB Conc 31.1 g/dL (31.8-35.4); Mean Corpuscular Hemoglobin 34.2 pg (27.0-31.2); Mean Corpuscular Volume 109.9 fl (80-94); Mean Platelet Volume 8.6 fl (7.4-10.4); Monocytes # 0.3 K/mm3 (0.1-1.0); Monocytes % 6.5 % (1.7-9.3); Neutrophils # 3.6 K/mm3 (1.8-7.8); Neutrophils % 68.5 % (37.0-80.0); Platelet Count 319 K/mm3 (142-424); Red Blood Count 3.31 M/mm3 (4.60-6.20); Red Cell Distribution Width 15.3 % (11.5-17.5); White Blood Count 5.3 K/mm3 (4.8-10.8)
[2023-11-25 13:36] LABS: Chloride 104 mmol/L (98-107); Potassium 3.5 mmoL/L (3.5-5.1); Sodium 138 mmol/L (136-145)
[2023-11-25 13:39] LABS: Alanine Aminotransferase 17 U/L (12-78); Albumin Level 2.9 g/dl (3.5-5.0); Albumin/Globulin Ratio 0.9 (1.1-1.8); Alkaline Phosphatase 126 U/L (38-126); Anion Gap 9.5 mEq/L (5-15); Aspartate Amino Transferase 29 U/L (17-59); Bilirubin,Total 0.4 mg/dl (0.2-1.3); Blood Urea Nitrogen 13 mg/dl (9-20); Carbon Dioxide 28 mmol/L (22.0-30.0); Creatinine Clearance Estimated 55 mL/min (50-200); Estimated Glomerular Filt Rate 130 ml/min (>60); GFR (African American) 157 ML/MIN (>60); Globulin 3.4 g/dL (1.3-3.2); Total Protein,Serum 6.3 g/dl (6.3-8.2)
[2023-11-25 13:40] LABS: Calcium 7.1 mg/dl (8.4-10.2); Glucose 102 mg/dl (74-100)
[2023-11-25] MEDS: SODIUM CHLORIDE 0.9% 50ML BAG 50 ML IV (13:55)
[2023-11-25] MEDS: PEMBROLIZUMAB 200 MG in 0.9 % SODIUM CHLORIDE 50 ML 116 MG IV (14:11)
[2023-11-25 14:20] VITALS: BP 156/85; PULSE 58; RESP 16; TEMP 36.2; O2SAT 99
[2023-11-25 14:35] VITALS: BP 146/74; PULSE 58; RESP 15
[2023-11-25 14:50] VITALS: BP 134/67; PULSE 62; RESP 16
== END 2023-11-25 15:10 | disposition home or self-care (01) ==
LOC: INF 12:48
PROVIDERS: PCP Nurse Practitioner; Visit Provider Internal Medicine Medical Oncology
DX: Z51.11 Encounter for antineoplastic chemotherapy (principal); C34.12 Malignant neoplasm of upper lobe, left bronchus or lung
CPT/HCPCS: 80053; 85025; 96413; J9271

== ENCOUNTER 2023-12-16 13:45 | Outpatient (CLI) | payer MEDICARE, BC, SELFPAY ==
[2023-12-16 13:50] VITALS: BMI 19.2
[2023-12-16 14:08] LABS: Chloride 103 mmol/L (98-107); Potassium 3.5 mmoL/L (3.5-5.1); Sodium 137 mmol/L (136-145)
[2023-12-16 14:10] LABS: Blood Urea Nitrogen 13 mg/dl (9-20); Creatinine Clearance Estimated 55 mL/min (50-200); Estimated Glomerular Filt Rate 109 ml/min (>60); GFR (African American) 132 ML/MIN (>60)
[2023-12-16 14:11] LABS: Alanine Aminotransferase 17 U/L (12-78); Albumin Level 3.2 g/dl (3.5-5.0); Albumin/Globulin Ratio 0.9 (1.1-1.8); Alkaline Phosphatase 145 U/L (38-126); Anion Gap 9.5 mEq/L (5-15); Aspartate Amino Transferase 28 U/L (17-59); Bilirubin,Total 0.4 mg/dl (0.2-1.3); Calcium 7.8 mg/dl (8.4-10.2); Carbon Dioxide 28 mmol/L (22.0-30.0); Globulin 3.6 g/dL (1.3-3.2); Glucose 103 mg/dl (74-100); Total Protein,Serum 6.8 g/dl (6.3-8.2)
[2023-12-16 14:16] LABS: Basophils # 0.1 K/mm3 (0-0.2); Basophils % 1.1 % (0.1-2.0); Eosinophils # 0.5 K/mm3 (0.0-0.4); Eosinophils % 10.9 % (0.1-12.0); Hematocrit 37.5 % (42.0-52.0); Hemoglobin 12.4 g/dL (14.1-18.0); Lymphocytes # 0.9 K/mm3 (0.7-4.5); Lymphocytes % 20.4 % (10-50); Mean Corpuscular HGB Conc 33.2 g/dL (31.8-35.4); Mean Corpuscular Hemoglobin 35.3 pg (27.0-31.2); Mean Corpuscular Volume 106.3 fl (80-94); Mean Platelet Volume 8.2 fl (7.4-10.4); Monocytes # 0.4 K/mm3 (0.1-1.0); Monocytes % 8.6 % (1.7-9.3); Neutrophils # 2.6 K/mm3 (1.8-7.8); Neutrophils % 58.9 % (37.0-80.0); Platelet Count 320 K/mm3 (142-424); Red Blood Count 3.53 M/mm3 (4.60-6.20); Red Cell Distribution Width 14.4 % (11.5-17.5); White Blood Count 4.4 K/mm3 (4.8-10.8)
[2023-12-16] MEDS: PEMBROLIZUMAB 200 MG in 0.9 % SODIUM CHLORIDE 50 ML 116 MG IV (15:05)
[2023-12-16] MEDS: SODIUM CHLORIDE 0.9% 50ML BAG 50 ML IV (15:06)
[2023-12-16] MEDS: SODIUM CHLORIDE 0.9% 10ML FLUSH SYRINGE 10 ML IV (15:06)
[2023-12-16 15:10] VITALS: BP 154/68; PULSE 58; RESP 18; TEMP 37; O2SAT 97
[2023-12-16 15:25] VITALS: BP 145/67; PULSE 61
== END 2023-12-16 15:50 | disposition home or self-care (01) ==
LOC: INF 13:46
PROVIDERS: PCP Nurse Practitioner; Visit Provider Internal Medicine Medical Oncology
DX: C34.90 Malignant neoplasm of unspecified part of unspecified bronchus or lung (principal); Z51.11 Encounter for antineoplastic chemotherapy
CPT/HCPCS: 80053; 85025; 96413; J9271

== ENCOUNTER 2024-01-06 13:22 | Outpatient (CLI) | payer MEDICARE, BC, SELFPAY ==
[2024-01-06 13:28] VITALS: BMI 18.2
[2024-01-06 13:52] LABS: Basophils % 0.3 % (0.1-2.0); Eosinophils # 0.2 K/mm3 (0.0-0.4); Hematocrit 37.2 % (42.0-52.0); Hemoglobin 12.4 g/dL (14.1-18.0); Lymphocytes # 0.9 K/mm3 (0.7-4.5); Lymphocytes % 13.7 % (10-50); Mean Corpuscular HGB Conc 33.3 g/dL (31.8-35.4); Mean Corpuscular Hemoglobin 33.5 pg (27.0-31.2); Mean Corpuscular Volume 100.5 fl (80-94); Mean Platelet Volume 8.3 fl (7.4-10.4); Monocytes # 0.4 K/mm3 (0.1-1.0); Monocytes % 5.9 % (1.7-9.3); Neutrophils # 5.3 K/mm3 (1.8-7.8); Neutrophils % 77.1 % (37.0-80.0); Platelet Count 359 K/mm3 (142-424); Red Cell Distribution Width 13.8 % (11.5-17.5); White Blood Count 6.8 K/mm3 (4.8-10.8)
[2024-01-06 14:11] LABS: Alanine Aminotransferase 17 U/L (12-78); Albumin Level 3.3 g/dl (3.5-5.0); Albumin/Globulin Ratio 0.9 (1.1-1.8); Alkaline Phosphatase 146 U/L (38-126); Anion Gap 7.8 mEq/L (5-15); Aspartate Amino Transferase 28 U/L (17-59); Bilirubin,Total 0.2 mg/dl (0.2-1.3); Blood Urea Nitrogen 13 mg/dl (9-20); Calcium 8.1 mg/dl (8.4-10.2); Carbon Dioxide 29 mmol/L (22.0-30.0); Chloride 105 mmol/L (98-107); Creatinine Clearance Estimated 52 mL/min (50-200); Estimated Glomerular Filt Rate 109 ml/min (>60); GFR (African American) 132 ML/MIN (>60); Globulin 3.6 g/dL (1.3-3.2); Glucose 100 mg/dl (74-100); Potassium 3.8 mmoL/L (3.5-5.1); Sodium 138 mmol/L (136-145); Total Protein,Serum 6.9 g/dl (6.3-8.2)
[2024-01-06 14:43] LABS: Thyroid Stimulating Hormone 1.92 uIU/mL (0.465-4.68)
[2024-01-06 15:10] VITALS: BP 167/74; PULSE 57; RESP 18; O2SAT 97
[2024-01-06] MEDS: SODIUM CHLORIDE 0.9% 50ML BAG 50 ML IV (15:10)
[2024-01-06] MEDS: PEMBROLIZUMAB 200 MG in 0.9 % SODIUM CHLORIDE 50 ML 100 MG IV (15:10)
[2024-01-06 15:59] VITALS: BP 160/89; PULSE 57; RESP 19; O2SAT 96
== END 2024-01-06 15:59 | disposition home or self-care (01) ==
PROVIDERS: PCP Nurse Practitioner; Visit Provider Internal Medicine Medical Oncology
DX: C34.90 Malignant neoplasm of unspecified part of unspecified bronchus or lung (principal); Z79.899 Other long term (current) drug therapy; Z51.11 Encounter for antineoplastic chemotherapy
CPT/HCPCS: 80053; 82533; 84443; 85025; 96413; J9271

== ENCOUNTER 2024-01-27 13:21 | Outpatient (CLI) | payer MEDICARE, BC, SELFPAY ==
[2024-01-27 13:28] VITALS: BMI 18.1
[2024-01-27 14:04] LABS: Chloride 104 mmol/L (98-107)
[2024-01-27 14:05] LABS: Potassium 3.7 mmoL/L (3.5-5.1); Sodium 136 mmol/L (136-145)
[2024-01-27 14:07] LABS: Alanine Aminotransferase 16 U/L (12-78); Alkaline Phosphatase 171 U/L (38-126); Aspartate Amino Transferase 28 U/L (17-59); Bilirubin,Total 0.2 mg/dl (0.2-1.3); Blood Urea Nitrogen 14 mg/dl (9-20); Creatinine Clearance Estimated 51 mL/min (50-200); Estimated Glomerular Filt Rate 109 ml/min (>60); GFR (African American) 132 ML/MIN (>60)
[2024-01-27 14:08] LABS: Albumin Level 3.3 g/dl (3.5-5.0); Albumin/Globulin Ratio 0.9 (1.1-1.8); Anion Gap 6.7 mEq/L (5-15); Calcium 8.1 mg/dl (8.4-10.2); Carbon Dioxide 29 mmol/L (22.0-30.0); Globulin 3.6 g/dL (1.3-3.2); Glucose 103 mg/dl (74-100); Total Protein,Serum 6.9 g/dl (6.3-8.2)
[2024-01-27 14:09] LABS: Basophils # 0.1 K/mm3 (0-0.2); Eosinophils # 0.5 K/mm3 (0.0-0.4); Eosinophils % 6.9 % (0.1-12.0); Hemoglobin 12.7 g/dL (14.1-18.0); Lymphocytes # 1.2 K/mm3 (0.7-4.5); Lymphocytes % 16.6 % (10-50); Mean Corpuscular HGB Conc 30.9 g/dL (31.8-35.4); Mean Corpuscular Hemoglobin 32.5 pg (27.0-31.2); Mean Corpuscular Volume 105.1 fl (80-94); Mean Platelet Volume 7.9 fl (7.4-10.4); Monocytes # 0.5 K/mm3 (0.1-1.0); Monocytes % 6.3 % (1.7-9.3); Neutrophils # 4.9 K/mm3 (1.8-7.8); Neutrophils % 69.2 % (37.0-80.0); Platelet Count 359 K/mm3 (142-424); Red Cell Distribution Width 14.2 % (11.5-17.5); White Blood Count 7.1 K/mm3 (4.8-10.8)
[2024-01-27] MEDS: PEMBROLIZUMAB 200 MG in 0.9 % SODIUM CHLORIDE 50 ML 100 MG IV (15:07)
[2024-01-27] MEDS: SODIUM CHLORIDE 0.9% 50ML BAG 50 ML IV (15:08)
[2024-01-27] MEDS: SODIUM CHLORIDE 0.9% 10ML FLUSH SYRINGE 10 ML IV (15:08)
[2024-01-27 15:15] VITALS: BP 147/74; PULSE 71; RESP 18; TEMP 36.8; O2SAT 99
[2024-01-27 15:50] VITALS: BP 164/71; PULSE 73
== END 2024-01-27 15:56 | disposition home or self-care (01) ==
LOC: INF 13:24
PROVIDERS: PCP Nurse Practitioner; Visit Provider Internal Medicine Medical Oncology
DX: C34.90 Malignant neoplasm of unspecified part of unspecified bronchus or lung (principal); F17.210 Nicotine dependence, cigarettes, uncomplicated
CPT/HCPCS: 80053; 85025; 96413; J9271

== ENCOUNTER 2024-02-14 10:26 | Outpatient (CLI) | payer MEDICARE, BC, SELFPAY ==
--- NOTE | 2024-02-14 10:31 | CT_ITS ---
FINAL REPORT TECHNIQUE: Thin section axial images were obtained through the abdomen after intravenous contrast. Reconstruction images were obtained from the axial data. Exam was performed using dose reduction techniques. CLINICAL HISTORY: LUNG CANCER COMPARISON: 08/30/2023 FINDINGS: Artifact from the patient's right arm limits sensitivity. The liver is homogeneous. There is no focal hepatic lesion. The gallbladder is surgically absent. There are bilateral adrenal masses. A right adrenal mass is unchanged and measures 4.5 cm. The left adrenal mass has increased in size measuring 4.6 cm in greatest dimension. Previously there were several smaller adrenal nodules, the largest measuring 1.9 cm. The spleen and pancreas are unremarkable. There is no hydronephrosis or solid renal mass. There is a nonobstructing right renal stone. The GI tract demonstrates no small bowel obstruction or focal wall thickening. There are multiple small retroperitoneal lymph nodes which appear stable. There is no ascites. The prostate gland is enlarged. The urinary bladder is unremarkable. The appendix is not visualized but there are no secondary signs of appendicitis. There is diverticulosis with no evidence of diverticulitis. There is no lymphadenopathy or free fluid in the pelvis. No acute osseous changes are seen. IMPRESSION: Interval increase in size of the left adrenal mass consistent with metastasis. Stable right adrenal metastasis. Stable retroperitoneal lymph nodes. Otherwise, no acute abnormality in the abdomen or pelvis. Reviewed, Interpreted and Dictated by Pepper Infante MD Transcribed by Mery Israel Authenticated and [facility]
--- NOTE | 2024-02-14 10:31 | CT_ITS ---
FINAL REPORT TECHNIQUE: Thin section axial images were obtained from the thoracic inlet through the upper abdomen after intravenous contrast injection. Reconstruction images were obtained from the axial data. Exam was performed using dose reduction technique. CLINICAL HISTORY: LUNG CANCER, follow-up COMPARISON: PET/CT dated September 28, 2023 FINDINGS: There is no mediastinal, hilar, or axillary lymphadenopathy. There is no pleural or pericardial effusion. There are emphysematous changes in the lungs. There is a 4 mm left upper lobe nodule on image 43 that was not well-seen on the prior PET/CT. There has been interval decrease in size in the irregular left upper lobe opacity which measures 2.3 x 1.1 cm and previously measured 4.1 x 2.7 cm. The cavitary component has significantly improved. A right upper lobe nodule on image 14 is unchanged. A posterior right upper lobe nodule on image 19 measures 6 mm and previously measured 8 mm. Groundglass nodularity on image 24 is stable. There are nodules in the anterior right lower lobe which are unchanged. There is a subpleural nodule in the right lower lobe on image 68 which now measures 9 mm and previously measured 6 mm. No acute osseous abnormality. IMPRESSION: Interval decrease in size and the irregular left upper lobe opacity. Interval decrease in size and subpleural right lower lobe nodule. Additional nodules and irregular opacities are stable. Short interval follow-up is recommended. Reviewed, Interpreted and Dictated by Pepper Infante MD Transcribed by Mery Israel Authenticated and . [facility]
[2024-02-14] MEDS: SODIUM CHLORIDE 0.9% 10ML SYR (RAD ONLY) 10 ML IV (12:14)
[2024-02-14] MEDS: IOPAMIDOL-370 (76%);100ML BOTTLE 75 ML IV (12:15)
== END 2024-02-14 23:59 ==
LOC: RAD 10:26 → INF 11:10
PROVIDERS: PCP Nurse Practitioner; Visit Provider Internal Medicine Medical Oncology
DX: C34.90 Malignant neoplasm of unspecified part of unspecified bronchus or lung (principal)
CPT/HCPCS: 71260; 74177; Q9967

== ENCOUNTER 2024-02-17 07:00 | Emergency (ER) | payer MEDICARE, BC, SELFPAY ==
[2024-02-17] VITALS (9 sets, daily range): BP systolic 130–184; BP diastolic 70–95; PULSE 56–64; RESP 16–20; TEMP 36.3; O2SAT 94–99; BMI 17.6
--- NOTE | 2024-02-17 07:18 | HMH.EDGENADL ---
Discharge Plan Disposition Patient Disposition: Home, Self-Care Condition: Good Prescriptions Prescriptions: New polyethylene glycol 3350 [Miralax] 17 gram/dose powder 17 g PO DAILY Qty: 510 0RF sennosides [Senna Lax] 8.6 mg tablet 8.6 mg PO HS Qty: 30 0RF mineral oil [Fleet Mineral Oil] Enema 118 ml AK DAILY PRN (Reason: constipation) Qty: 133 0RF Rx Instructions: discard any unused portion No Action timolol maleate 0.5 % drops 1 drp Eye-Both BID hydrochlorothiazide 25 mg tablet 25 mg PO DAILY aspirin [Mary Kate Aspirin] 325 mg tablet 325 mg PO DAILY atorvastatin 40 MG tablet 40 mg PO HS atenolol 100 MG tablet 100 mg PO DAILY clopidogrel 75 MG tablet 75 mg PO DAILY ramipril 10 MG capsule 10 mg PO DAILY hydralazine 10 mg tablet 10 mg PO TID phenytoin sodium extended 100 mg capsule 100 mg PO TID Referrals Follow up/Referrals: Chloé Yin MD [Primary Care Provider] - See instructions Activity Restrictions/Add. Instructions Additional Instructions/Restrictions: You were evaluated in the emergency department today. At this time, workup is concerning for constipation. Please pickle cutter your prescriptions at the pharmacy and use them as prescribed. Please follow-up closely with your primary care provider as well as oncology. Return to the emergency department for new or worsening symptoms. Clinical Impressions Clinical Impression: Abdominal pain, Constipation, Metastatic lung cancer (metastasis from lung to other site), Free fluid in pelvis Instructions Patient Instructions: DI for Constipation, DI for Acute Abdominal Pain Discharge ED Provider: Liberty Leos General Adult HPI General Chief complaint: Abdominal Pain Stated complaint: left side pain Time Seen by Provider: 02/17/24 07:04 Mode of Arrival: Wheelchair Source of Information: Patient Limitations: No Limitations Description of Symptoms (Recalled from ER Triage Doc. by RN): patient presents to ER with complaints of left side pain since 10pm last night. Patient states the pain is constant and sharp he has not gotten any relief. Patient reports he has cancer in thyroid and left lung and currently undergoing treatments. History of Present Illness HPI narrative: This patient is a 78-year-old male with a history of metastatic lung cancer with known adrenal mass currently on immunotherapy infusions with Keytruda presenting with concern for left-sided abdominal pain that started around 10:00 PM last night. It radiates from his left mid/left upper quadrant to his back. Patient states that the pain is constant and sharp and nothing has made it better or worse. He has not been able to get comfortable. He denies any fevers, chills, chest pain, shortness of breath, cough, nausea, vomiting, diarrhea, or urinary symptoms, but he does note constipation. Related Data Home Medications Medication Instructions Recorded Confirmed atenolol 100 mg tablet 100 mg PO DAILY Hypertension 09/09/19 01/27/24 atorvastatin 40 mg tablet 40 mg PO HS Cholesterol 09/09/19 01/27/24 clopidogrel 75 mg tablet 75 mg PO DAILY HEART 09/09/19 01/27/24 ramipril 10 mg capsule 10 mg PO DAILY Hypertension 09/09/19 01/27/24 aspirin 325 mg tablet (Mary Kate 325 mg PO DAILY 09/02/23 01/27/24 Aspirin) hydralazine 10 mg tablet 10 mg PO TID Hypertension 09/02/23 01/27/24 phenytoin sodium extended 100 mg 100 mg PO TID SEIZURES 09/02/23 01/27/24 capsule hydrochlorothiazide 25 mg tablet 25 mg PO DAILY 09/30/23 01/27/24 timolol maleate 0.5 % eye drops 1 drp Eye-Both BID 09/30/23 01/27/24 Previous Rx's Medication Instructions Recorded mineral oil (Fleet Mineral Oil 118 ml AK DAILY PRN constipation 02/17/24 enema) #133 mL polyethylene glycol 3350 17 17 g PO DAILY #510 grams 02/17/24 gram/dose oral powder (Miralax) sennosides 8.6 mg tablet (Senna 8.6 mg PO HS #30 tabs 02/17/24 Lax) Allergies Allergy/AdvReac Type Severity Reaction Status Date / Time indomethacin [From INDOCIN] Allergy Unknown SEIZURES Verified 01/27/24 13:56 [facility] Disclaimer: The information contained in this section may have been updated after the patient was seen, as this information can be updated by other users. Medical History Seizure disorder Glaucoma History of cataract Allergies Hyperlipidemia Hypertension Skin cancer Surgical History History of surgery S/P hernia surgery History of cholecystectomy Family History Other No significant family history Social History Smoking Status: Current every day smoker tobacco type: cigarettes packs per day: 1 alcohol intake: never substance use type: denies use current occupational status: retired Travel in the last 8 weeks: None ROS Obtained: Yes All systems reviewed & no additional complaints except as documented Physical Exam General General appearance: alert and in no apparent distress Head Head exam: atraumatic and normocephalic Eye Eye exam: Present normal appearance, PERRL and EOMI ENT ENT exam: Present normal exam, normal oropharynx, mucous membranes moist and normal external ear exam Neck Neck exam: Present normal inspection, full ROM and trachea midline; Absent tenderness Chest Chest inspection: Present normal inspection and symmetric chest wall rise; Absent tenderness Respiratory Respiratory exam: Present normal lung sounds bilaterally; Absent respiratory distress, wheezes, stridor or accessory muscle use Cardiovascular Cardiovascular exam: Present regular rate and normal rhythm Abdominal Exam Abdominal exam: Present soft, tenderness (Left upper quadrant/left mid abdomen), guarding (Left upper quadrant/left mid abdomen) and normal bowel sounds; Absent distention, rebound or rigidity Extremities Exam Extremities exam: Present normal inspection, full ROM and normal capillary refill; Absent tenderness or edema Back Exam Back exam: Present normal inspection and full ROM; Absent tenderness Neurological Exam Neurological exam: Present alert, oriented X3, CN II-XII intact and normal gait; Absent motor sensory deficit Psychiatric Psychiatric exam: Present normal affect and normal mood Skin Skin exam: Present warm and dry Medical Decision Making Medical Records Medical records reviewed: Yes I reviewed the patient's medical records. [place] Inquiry Pt receiving controlled substance: No Vital Signs: 02/17/24 07:02 02/17/24 07:30 02/17/24 08:01 Temperature 97.4 F L Temperature Source Oral Pulse Rate 57 L 59 L Pulse Rate [Right] 60 Respiratory Rate 18 Blood Pressure 184/95 H 172/93 H Blood Pressure [Right Arm] 168/70 H Blood Pressure Mean Blood Pressure Mean [Right Arm] 102 Blood Pressure Source [Right Arm] Automatic Cuff 02 Sat by Pulse Oximetry 96 99 99 Oxygen Delivery Method Room Air 02/17/24 08:30 02/17/24 09:00 02/17/24 09:30 Temperature Temperature Source Pulse Rate 60 58 L 58 L Pulse Rate [Right] Respiratory Rate 20 18 Blood Pressure 180/89 H 140/77 142/87 H Blood Pressure [Right Arm] Blood Pressure Mean 111 111 Blood Pressure Mean [Right Arm] Blood Pressure Source [Right Arm] 02 Sat by Pulse Oximetry 97 97 94 L Oxygen Delivery Method 02/17/24 10:00 02/17/24 10:30 02/17/24 10:54 Temperature 97.4 F L Temperature Source Oral Pulse Rate 56 L 60 64 Pulse Rate [Right] Respiratory Rate 18 20 16 Blood Pressure 141/78 H 130/75 130/78 Blood Pressure [Right Arm] Blood Pressure Mean 107 93 Blood Pressure Mean [Right Arm] Blood Pressure Source [Right Arm] 02 Sat by Pulse Oximetry 95 95 Oxygen Delivery Method Room Air Lab Data Lab results reviewed: Yes I reviewed the patient's lab results. Lab Results 02/17/24 07:14: WBC 7.4, RBC 3.80 L, Hgb 12.7 L, Hct 40.8 L, MCV 107.3 H, MCH 33.4 H, MCHC 31.1 L, RDW 14.9, Plt Count 369, MPV 8.2, Neut % (Auto) 73.3, Lymph % (Auto) 12.4, [place] % (Auto) 5.5, Eos % (Auto) 7.9, Baso % (Auto) 1.0, Neut # (Auto) 5.4, Lymph # (Auto) 0.9, [place] # (Auto) 0.4, Eos # (Auto) 0.6 H, Baso # (Auto) 0.1, Sodium 134 L, Potassium 4.4, Chloride 104, Carbon Dioxide 28, Anion Gap 6.4, BUN 13, Creatinine 0.60 L, Estimated Creat Clear 50, Estimated GFR 130, Est GFR ( Amer) 157, Glucose 105 H, Calcium 8.4, Total Bilirubin 0.6, AST 27, ALT 13, Alkaline Phosphatase 133 H, Total Protein 7.0, Albumin 3.3 L, Globulin 3.7 H, Albumin/Globulin Ratio 0.9 L, Lipase 49 02/17/24 07:43: Lactate 1.0 02/17/24 08:11: Urine Color Yellow, Urine Appearance Clear, Urine pH 7.5, Ur Specific [place] 1.020, Urine Protein Negative, Urine Glucose (UA) Negative, Urine Ketones Negative, Urine Blood Negative, Urine Nitrate Negative, Urine Bilirubin Negative, Urine Urobilinogen 0.2, Ur Leukocyte Esterase Negative, Urine RBC None, Urine WBC Occasional, Ur Squamous Epith Cells Occasional, Urine Bacteria Trace 02/17/24 07:14 02/17/24 07:14 Orders (Tests/Meds): ED MEDICATIONS Discontinued Medications Generic Name Dose Route Start Last Admin Trade Name Freq PRN Reason Stop Dose Admin Acetaminophen 1,000 mg 02/17/24 07:16 02/17/24 07:26 Acetaminophen 1,000mg/100ml Vial IV 02/17/24 07:17 1,000 mg ONCE ONE Administration Lactated Ringer's 500 mls @ 999 mls/hr 02/17/24 07:16 02/17/24 07:26 Lactated Ringer's 500ml IV 02/17/24 07:46 999 mls/hr .Q31M ONE Administration Iopamidol 75 ml 02/17/24 08:48 02/17/24 08:49 Iopamidol-370 (76%);100ml Bottle IV 02/17/24 08:49 75 ml ONCE ONE Administration Ketorolac Tromethamine 15 mg 02/17/24 07:16 02/17/24 07:26 Ketorolac 30mg/Ml Vial IV 02/17/24 07:17 15 mg ONCE ONE Administration Morphine Sulfate 4 mg 02/17/24 08:13 02/17/24 08:24 Morphine 4mg/Ml Syringe IV 02/17/24 08:14 4 mg ONCE ONE Administration Ondansetron HCl 4 mg 02/17/24 08:13 02/17/24 08:24 Ondansetron 4mg/2ml Vial IV 02/17/24 08:14 4 mg ONCE ONE Administration Sodium Chloride 10 ml 02/17/24 08:48 02/17/24 08:49 Sodium Chloride 0.9% 10ml Syr (Rad Only) IV 02/17/24 08:49 10 ml ONCE ONE Administration ORDERS Category Date Time Status CT abdomen pelvis w con Stat Cat Scan 02/17/24 07:31 Taken Complete Blood Count Auto Diff Stat Lab 02/17/24 07:14 Completed Comprehensive Metabolic Panel Stat Lab 02/17/24 07:14 Completed Lactic Acid Stat Lab 02/17/24 07:43 Completed Lipase Stat Lab 02/17/24 07:14 Completed Urinalysis and Microscopic Stat Lab 02/17/24 08:11 Completed Medical Decision Narrative: In summary, this patient is a 78-year-old male presenting to the Emergency Department for evaluation of abdominal pain. Differential diagnoses considered include but are not limited to worsening metastatic burden, bowel obstruction, bowel ischemia, gastritis, pancreatitis. Ruling out the most morbid conditions drove assessment. I reviewed patient's past medical records and noted patient had a CT scan of his abdomen and pelvis done 02/14/2024 for monitoring of his cancer. He had interval increase in the size of the left adrenal mass at that time. No acute findings were found otherwise. On exam, the patient is nontoxic-appearing with reassuring vital signs on cardiac telemetry aside from mild hypertension. He has left-sided abdominal tenderness with voluntary guarding, but otherwise no rebound, rigidity, or other concerns. Abdomen is soft and nondistended. Workup included CBC, CMP, lipase, lactic acid, urinalysis. I advised that I felt we should obtain a CT scan to further assess given the acute change in the patient's pain, however daughter notes that he just had one 02/14/2024. I do feel that obtaining a new imaging would be best to rule out surgical intra-abdominal pathology given he was not having pain at that time. Patient was given 500 cc bolus of IV fluids as well as IV Toradol and acetaminophen for symptomatic improvement. I independently interpreted CT scan prior to the radiologist read and noted to large stool burden without obstructive process. No other acutely concerning abnormalities. Please see their read for final interpretation. They do note trace free fluid in the pelvis, but this is nonspecific. Labs were obtained that demonstrated no acutely concerning abnormalities at this time in comparison to prior labs. On reassessment, patient had minimal improvement after administration of medications above. Given this, he was given IV morphine and Zofran for symptomatic improvement. He tolerated this well and was resting comfortably with no complaints of pain afterward. Based on CT scan, I do feel that constipation is likely the cause of his pain, versus pain related to his cancer. I had interactive discussion with his oncologist who advised that he had already spoken with the family as far as plan for future management of his malignancy. I advised the patient that we could attempt to treat his constipation here by starting out with an enema, but he wishes to go home to try bowel cleanout at home. Given this, I have prescribed him an enema as well as MiraLAX and senna. Strict return precautions were given, and the patient was discharged with plan for very close outpatient follow-up. Critical Care Critical Care Time Critical Care Time: No
[2024-02-17 07:23] LABS: Basophils # 0.1 K/mm3 (0-0.2); Eosinophils # 0.6 K/mm3 (0.0-0.4); Eosinophils % 7.9 % (0.1-12.0); Hematocrit 40.8 % (42.0-52.0); Hemoglobin 12.7 g/dL (14.1-18.0); Lymphocytes # 0.9 K/mm3 (0.7-4.5); Lymphocytes % 12.4 % (10-50); Mean Corpuscular HGB Conc 31.1 g/dL (31.8-35.4); Mean Corpuscular Hemoglobin 33.4 pg (27.0-31.2); Mean Corpuscular Volume 107.3 fl (80-94); Mean Platelet Volume 8.2 fl (7.4-10.4); Monocytes # 0.4 K/mm3 (0.1-1.0); Monocytes % 5.5 % (1.7-9.3); Neutrophils # 5.4 K/mm3 (1.8-7.8); Neutrophils % 73.3 % (37.0-80.0); Platelet Count 369 K/mm3 (142-424); Red Cell Distribution Width 14.9 % (11.5-17.5); White Blood Count 7.4 K/mm3 (4.8-10.8)
[2024-02-17] MEDS: ACETAMINOPHEN 1,000MG/100ML VIAL 1000 MG IV (07:26)
[2024-02-17] MEDS: KETOROLAC 30MG/ML VIAL 15 MG IV (07:26)
[2024-02-17] MEDS: RINGERS SOLUTION,LACTATED 500 ML 999 ML IV (07:26)
[2024-02-17 07:28] LABS: Alanine Aminotransferase 13 U/L (12-78); Albumin Level 3.3 g/dl (3.5-5.0); Albumin/Globulin Ratio 0.9 (1.1-1.8); Alkaline Phosphatase 133 U/L (38-126); Anion Gap 6.4 mEq/L (5-15); Aspartate Amino Transferase 27 U/L (17-59); Bilirubin,Total 0.6 mg/dl (0.2-1.3); Blood Urea Nitrogen 13 mg/dl (9-20); Calcium 8.4 mg/dl (8.4-10.2); Carbon Dioxide 28 mmol/L (22.0-30.0); Chloride 104 mmol/L (98-107); Creatinine Clearance Estimated 50 mL/min (50-200); Estimated Glomerular Filt Rate 130 ml/min (>60); GFR (African American) 157 ML/MIN (>60); Globulin 3.7 g/dL (1.3-3.2); Glucose 105 mg/dl (74-100); Lipase 49 U/L (23-300); Potassium 4.4 mmoL/L (3.5-5.1); Sodium 134 mmol/L (136-145)
--- NOTE | 2024-02-17 07:31 | CT_ITS ---
FINAL REPORT TECHNIQUE: After the administration of oral and intravenous contrast, axial images were obtained through the abdomen and pelvis by computed tomography. The study was performed with techniques to keep radiation dose as low as reasonably achievable, (ALARA). Individual dose reduction techniques using automated exposure control or adjustment of mA and/or kV according to the patient's size were employed. CLINICAL HISTORY: L abd pain, known metastatic dz with adrenal mass COMPARISON: CT abdomen and pelvis 02/14/2024 FINDINGS: Abdomen: There is a pleural-based nodule in the periphery of the right lower lobe, 8 mm in size, stable since the prior exam. The liver parenchyma is homogeneous. The gallbladder is surgically absent. The spleen and pancreas appear unremarkable. There is enlargement of the adrenal glands bilaterally, the right adrenal mass measuring 4.6 x 2.9 cm in size, the left adrenal mass measuring 4.6 x 4.9 cm in size, similar to the prior CT of February 13 and likely metastases. There are small nonobstructing renal stones noted bilaterally. Retroperitoneal adenopathy is once again noted, nonspecific. The aorta is normal in caliber. There is no free fluid or adenopathy. Pelvis: The appendix is not identified. There is moderate diverticulosis of the sigmoid colon. No acute inflammatory changes identified. The urinary bladder is unremarkable. There is a small amount of free fluid present in the pelvis, new since the prior CT. IMPRESSION: Small amount of free fluid present in the pelvis, new since the prior CT of February 13. 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 Bilateral nonobstructing renal stones. Moderate diverticulosis of the sigmoid colon without evidence of acute inflammatory change. Reviewed, Interpreted and Dictated by Arsenio Rodríguez MD Transcribed by Yvrose Levine Authenticated and [facility]
[2024-02-17 08:14] LABS: Microscopic, Urine URINE MICROSCOPIC (MICROSCOPIC)
--- NOTE | 2024-02-17 08:16 | PC.NURSE ---
Rounded on patient, helped patient with urinal and provided warm blanket at this time.
[2024-02-17 08:18] LABS: Appearance,Urine CLEAR (Clear); Bilirubin,Urine Negative (Negative); Blood, Urine Negative (Negative); Color,Urine YELLOW (Yellow); Glucose,Urine (UA) Negative (Negative); Ketones,Urine Negative (Negative); Leukocyte Esterase,Urine Negative (Negative); Nitrate,Urine Negative (Negative); PH,Urine 7.5 (5.0-8.5); Protein,Urine Negative (Negative); Urobilinogen,Urine 0.2 EU/dl (0.2)
[2024-02-17] MEDS: ONDANSETRON 4MG/2ML VIAL 4 MG IV (08:24)
[2024-02-17] MEDS: MORPHINE 4MG/ML SYRINGE 4 MG IV (08:24)
[2024-02-17] MEDS: SODIUM CHLORIDE 0.9% 10ML SYR (RAD ONLY) 10 ML IV (08:49)
[2024-02-17] MEDS: IOPAMIDOL-370 (76%);100ML BOTTLE 75 ML IV (08:49)
--- NOTE | 2024-02-17 09:12 | PC.NURSE ---
pt up at bedside to use urinal
--- NOTE | 2024-02-17 10:35 | PC.NURSE ---
Dr Leos speaking with Dr Mendoza
--- NOTE | 2024-02-17 10:46 | PC.NURSE ---
assisted patient with urinal at this time.
[2024-02-17 10:57] LABS: Bacteria,Urine Trace /lpf; Squamous Epithelial Cell,Urine Occasional #/hpf (0-5); WBC,Urine Occasional #/hpf (0-3)
== END 2024-02-17 10:55 | disposition home or self-care (01) ==
PROVIDERS: Emergency Provider Emergency Medicine; PCP Family Medicine
DX: K59.00 Constipation, unspecified; C34.90 Malignant neoplasm of unspecified part of unspecified bronchus or lung; R10.12 Left upper quadrant pain; G40.909 Epilepsy, unspecified, not intractable, without status epilepticus; E78.5 Hyperlipidemia, unspecified; I10 Essential (primary) hypertension; F17.210 Nicotine dependence, cigarettes, uncomplicated; C79.89 Secondary malignant neoplasm of other specified sites
CPT/HCPCS: 74177; 80053; 81001; 83605; 83690; 85025; 96374; 96375; 99285; J0131; J2405; Q9967

== ENCOUNTER 2024-03-15 08:32 | Inpatient (IN) | payer OTHER, MEDICARE, BC, SELFPAY ==
[2024-03-15] VITALS (16 sets, daily range): BP systolic 136–187; BP diastolic 71–96; PULSE 51–77; RESP 12–18; TEMP 36.7–37.3; O2SAT 89–97; BMI 17.6; BMI 17.4
--- NOTE | 2024-03-15 08:29 | ECG_ITS ---
APPROVED REPORT Exam: Resting ECG HR:50 bpm ECG Measurements Heart Rate 50 AXES OK 247 P 96 QRSd 92 QRS 72 QT 462 T 72 QTc 434 Conclusion SINUS BRADYCARDIA WITH FIRST DEGREE AV BLOCK LVH Electronically signed by : PADMAJA TORRES, 03/16/2024 19:39:16
--- NOTE | 2024-03-15 08:36 | PC.NURSE ---
FAMILY AT BEDSIDE
--- NOTE | 2024-03-15 08:37 | ED_ITS ---
Discharge Plan Disposition Patient Disposition: Admitted Clinical Impressions Clinical Impression: Intractable pain Discharge ED Provider: Obinna Terrazas General Adult HPI General Chief complaint: Chest Pain Stated complaint: CHEST PAIN Time Seen by Provider: 03/15/24 08:37 History of Present Illness HPI narrative: This patient presents for evaluation of epigastric abdominal pain which was gradual in onset starting yesterday, worsening overnight. He woke up at approximately 3:00 this morning and has had trouble sleeping since due to the pain. He normally wakes up at approximately 4:00 this morning. Patient has history of metastatic disease under hospice care per family members at bedside. He reports his last bowel movement was approximately 48 hours ago. He is unsure if he has been able to pass flatus over the past 24 hours. He has had no blood in his emesis. He denies any chest pain, denies any shortness of breath. Previous therapies include home pain medication. He reports he has had similar symptoms secondary to constipation. He does not take any blood thinning medications. No syncope or presyncope. The pain is nonradiating, it is sharp, mild to moderate in severity Please note that above description of symptoms, in this electronic medical record under categorization of recalled from ER triage doctor by RN are reflective of an initial nursing assessment, however, is not reflective of my full history and physical exam that was personally taken and clarified. Consequentially, this preceding description of symptoms, which may include the patient's categorized chief complaint in the EMR, do not reflect my personal clinical impression, and the ultimate description of history of present illness and patient stated complaints should be deferred to this section of the note. Unless stated otherwise or congruent with this section of the note, additional signs, symptoms, or incongruence should be interpreted as inaccurate with my clinical impression. Related Data Home Medications Medication Instructions Recorded Confirmed atenolol 100 mg tablet 100 mg PO DAILY 09/09/19 03/15/24 atorvastatin 40 mg tablet 40 mg PO HS 09/09/19 03/15/24 clopidogrel 75 mg tablet 75 mg PO DAILY 09/09/19 03/15/24 ramipril 10 mg capsule 10 mg PO BID 09/09/19 03/15/24 aspirin 325 mg tablet (Mary Kate 325 mg PO DAILY 09/02/23 03/15/24 Aspirin) hydralazine 10 mg tablet 10 mg PO TID 09/02/23 03/15/24 phenytoin sodium extended 100 mg 100 mg PO TID 09/02/23 03/15/24 capsule hydrochlorothiazide 25 mg tablet 25 mg PO DAILY 09/30/23 03/15/24 timolol maleate 0.5 % eye drops 1 drp Eye-Both BID 09/30/23 03/15/24 Previous Rx's Medication Instructions Recorded mineral oil (Fleet Mineral Oil 118 ml [place] DAILY PRN constipation 02/17/24 enema) #133 mL polyethylene glycol 3350 17 17 g PO DAILY #510 grams 02/17/24 gram/dose oral powder (Miralax) sennosides 8.6 mg tablet (Senna 8.6 mg PO HS #30 tabs 02/17/24 Lax) Allergies Allergy/AdvReac Type Severity Reaction Status Date / Time indomethacin [From INDOCIN] Allergy Unknown SEIZURES Verified 01/27/24 13:56 [facility] Disclaimer: The information contained in this section may have been updated after the patient was seen, as this information can be updated by other users. Medical History (Updated 03/15/24 @ 18:23 by Pranav Damon MD) Seizure disorder Glaucoma History of cataract Allergies Hyperlipidemia Hypertension Skin cancer Surgical History History of surgery S/P hernia surgery History of cholecystectomy Family History Other No significant family history Social History Smoking Status: Unknown if ever smoked alcohol intake: never substance use type: denies use current occupational status: retired Travel in the last 8 weeks: None ROS Obtained: Yes other As per HPI Physical Exam General General appearance: alert and in no apparent distress Comment: Chronically ill-appearing Head Head exam: atraumatic and normocephalic Eye Eye exam: Present normal appearance Neck Neck exam: Present normal inspection Chest Chest inspection: Present normal inspection and symmetric chest wall rise Respiratory Respiratory exam: Present normal lung sounds bilaterally; Absent respiratory distress Cardiovascular Cardiovascular exam: Present regular rate and normal rhythm Abdominal Exam Abdominal exam: Present soft and tenderness; Absent guarding Abdominal tenderness: Present epigastrium Neurological Exam Neurological exam: Present alert and oriented X3 Psychiatric Psychiatric exam: Present normal affect and normal mood Skin Skin exam: Present warm and dry Medical Decision Making Medical Records Medical records reviewed: Yes I reviewed the patient's medical records. [place] Inquiry Pt receiving controlled substance: No Vital Signs: 03/15/24 08:32 03/15/24 09:02 03/15/24 10:01 Temperature 98.0 F Temperature Source Oral Pulse Rate 56 L 65 Pulse Rate [Radial] 51 L Respiratory Rate 18 18 15 Blood Pressure 159/93 H 163/89 H Blood Pressure [Right Arm] 187/95 H Blood Pressure Mean [Right Arm] 125 Blood Pressure Source Blood Pressure Source [Right Arm] Automatic Cuff Blood Pressure Position Blood Pressure Position [Right Arm] Sitting 02 Sat by Pulse Oximetry 96 95 97 Oxygen Delivery Method Room Air Room Air Room Air 03/15/24 10:30 03/15/24 10:49 03/15/24 11:15 Temperature Temperature Source Pulse Rate 65 60 59 L Pulse Rate [Radial] Respiratory Rate 16 15 17 Blood Pressure 154/93 H 154/85 H 162/96 H Blood Pressure [Right Arm] Blood Pressure Mean [Right Arm] Blood Pressure Source Blood Pressure Source [Right Arm] Blood Pressure Position Blood Pressure Position [Right Arm] 02 Sat by Pulse Oximetry 97 94 L 97 Oxygen Delivery Method Room Air 03/15/24 11:30 03/15/24 12:00 03/15/24 12:30 Temperature Temperature Source Pulse Rate 61 59 L 61 Pulse Rate [Radial] Respiratory Rate 12 16 14 Blood Pressure 160/95 H 136/92 H 139/71 Blood Pressure [Right Arm] Blood Pressure Mean [Right Arm] Blood Pressure Source Blood Pressure Source [Right Arm] Blood Pressure Position Blood Pressure Position [Right Arm] 02 Sat by Pulse Oximetry 96 96 91 L Oxygen Delivery Method Room Air Room Air Room Air 03/15/24 13:00 03/15/24 13:30 03/15/24 14:00 Temperature Temperature Source Pulse Rate 59 L 58 L 64 Pulse Rate [Radial] Respiratory Rate 16 16 12 Blood Pressure 139/71 154/78 H 140/83 Blood Pressure [Right Arm] Blood Pressure Mean [Right Arm] Blood Pressure Source Blood Pressure Source [Right Arm] Blood Pressure Position Blood Pressure Position [Right Arm] 02 Sat by Pulse Oximetry 92 L 91 L 89 L Oxygen Delivery Method Room Air Room Air 03/15/24 15:13 Temperature 98.0 F Temperature Source Oral Pulse Rate 64 Pulse Rate [Radial] Respiratory Rate 12 Blood Pressure 140/83 Blood Pressure [Right Arm] Blood Pressure Mean [Right Arm] Blood Pressure Source Automatic Cuff Blood Pressure Source [Right Arm] Blood Pressure Position Sitting Blood Pressure Position [Right Arm] 02 Sat by Pulse Oximetry Oxygen Delivery Method Room Air Lab Data Lab Results 03/15/24 08:09: WBC 8.7, RBC 3.63 L, Hgb 11.9 L, Hct 37.7 L, MCV 104.0 H, MCH 32.7 H, MCHC 31.5 L, RDW 15.3, Plt Count 406, MPV 8.0, Neut % (Auto) 77.9, Lymph % (Auto) 11.4, Sharp % (Auto) 5.3, Eos % (Auto) 4.7, Baso % (Auto) 0.7, Neut # (Auto) 6.8, Lymph # (Auto) 1.0, Sharp # (Auto) 0.5, Eos # (Auto) 0.4, Baso # (Auto) 0.1, PT 10.9, INR 1.01, Sodium 137, Potassium 3.6, Chloride 104, Carbon Dioxide 30, Anion Gap 6.6, BUN 11, Creatinine 0.60 L, Estimated Creat Clear 50, Estimated GFR 130, Est GFR ( Amer) 157, Glucose 103 H, Calcium 8.4, Total Bilirubin 0.4, AST 31, ALT 13, Alkaline Phosphatase 158 H, Troponin I < 0.01, Total Protein 7.0, Albumin 3.3 L, Globulin 3.7 H, Albumin/Globulin Ratio 0.9 L, Lipase 103 03/15/24 09:48: Urine Color Yellow, Urine Appearance Clear, Urine pH 7.5, Ur Specific [place] 1.020, Urine Protein Negative, Urine Glucose (UA) Negative, Urine Ketones Negative, Urine Blood Negative, Urine Nitrate Negative, Urine Bilirubin Negative, Urine Urobilinogen 0.2, Ur Leukocyte Esterase Negative, Urine RBC Occasional, Urine WBC Occasional, Ur Squamous Epith Cells Occasional, Amorphous Sediment 2+, Urine Bacteria 1+ 03/15/24 12:10: Troponin I < 0.01 03/15/24 08:09 03/15/24 08:09 Orders (Tests/Meds): ED MEDICATIONS Generic Name Dose Route Start Last Admin Trade Name Freq PRN Reason Stop Dose Admin Atorvastatin Calcium 40 mg 03/15/24 21:00 Atorvastatin 40mg Tablet PO 04/14/24 20:59 HS [facility] Clopidogrel Bisulfate 75 mg 03/16/24 09:00 Clopidogrel 75mg Tab PO 04/15/24 08:59 DAILY [facility] Hydralazine HCl 10 mg 03/15/24 21:00 Hydralazine 10mg Tablet PO 04/14/24 20:59 TID [facility] Morphine Sulfate 4 mg 03/15/24 14:28 03/15/24 15:49 Morphine 4mg/Ml Syringe IV 04/14/24 14:27 4 mg Q4HP PRN Administration Severe Pain (7-10) Non-Formulary Medication 100 mg 03/16/24 09:00 Atenolol PO 04/15/24 08:59 DAILY [facility] Phenytoin Sodium 100 mg 03/15/24 21:00 Phenytoin 100mg Capsule PO 04/14/24 20:59 TID [facility] Polyethylene Glycol 17 gm 03/15/24 15:00 03/15/24 17:47 Polyethylene Glycol 3350 17 Gm Packet PO 04/14/24 14:59 17 gm Q6H EVI Administration Ramipril 10 mg 03/15/24 21:00 Ramipril 10mg Capsule PO 04/14/24 20:59 BID [facility] Sennosides 8.6 mg 03/15/24 21:00 Senna 8.6mg Tablet PO 04/14/24 20:59 HS [facility] Timolol Maleate 0.05 ml 03/15/24 21:00 Timolol 0.5% Opth Soln 5ml OP 04/14/24 20:59 BID [facility] Discontinued Medications Generic Name Dose Route Start Last Admin Trade Name Freq PRN Reason Stop Dose Admin Hydromorphone HCl 0.5 mg 03/15/24 08:52 03/15/24 09:15 Hydromorphone 4 Mg/Ml Syringe IV 03/15/24 08:53 0.5 mg ONCE ONE Administration Hydromorphone HCl 0.5 mg 03/15/24 12:30 03/15/24 12:20 Hydromorphone 2mg/Ml Syringe IV 03/15/24 12:31 0.5 mg ONCE ONE Administration Lactated Ringer's 1,000 mls @ 999 mls/hr 03/15/24 08:52 03/15/24 09:13 Lactated Ringer's 1000 Ml Bag IV 03/15/24 09:52 999 mls/hr .Q1H1M ONE Administration Iopamidol 100 ml 03/15/24 09:48 03/15/24 09:49 Iopamidol-370 (76%);100ml Bottle IV 03/15/24 09:49 100 ml ONCE ONE Administration Morphine Sulfate 8 mg 03/15/24 14:00 03/15/24 13:55 Morphine 8mg/Ml Syringe IV 03/15/24 14:01 8 mg ONCE ONE Administration Ondansetron HCl 4 mg 03/15/24 08:52 03/15/24 09:15 Ondansetron 4mg/2ml Vial IV 03/15/24 08:53 4 mg ONCE ONE Administration Sodium Chloride 50 ml 03/15/24 09:48 03/15/24 09:49 0.9 % Sodium Chloride 50 Ml Vial IV 03/15/24 09:49 50 ml ONCE ONE Administration Sodium Chloride 10 ml 03/15/24 09:48 03/15/24 09:49 Sodium Chloride 0.9% 10ml Syr (Rad Only) IV 03/15/24 09:49 10 ml ONCE ONE Administration ORDERS Category Date Time Status CT angio abdomen pelvis Stat Cat Scan 03/15/24 08:52 Completed CTA Chest [CT angio chest PE protocol] Stat Cat Scan 03/15/24 08:52 Completed CBC w/Auto Diff [Complete Blood Count Auto Diff] Stat Lab 03/15/24 08:09 Completed CMP [Comprehensive Metabolic Panel] Stat Lab 03/15/24 08:09 Completed Complete Blood Count Auto Diff AMLAB Lab 03/16/24 06:00 Ordered Comprehensive Metabolic Panel AMLAB Lab 03/16/24 06:00 Ordered Lipase Stat Lab 03/15/24 08:09 Completed Magnesium AMLAB Lab 03/16/24 06:00 Ordered PT INR [Prothrombin Time INR] Stat Lab 03/15/24 08:09 Completed Troponin I Q3H Lab 03/15/24 08:09 Completed Troponin I Q3H Lab 03/15/24 12:10 Completed Troponin I Q3H Lab 03/15/24 15:00 Completed Urinalysis and Microscopic Stat Lab 03/15/24 09:48 Completed Medical Decision Narrative: Patient with history and exam per above presenting for evaluation of abdominal pain Diagnoses considered include bowel obstruction, constipation, tumor burden, ACS, PE, mesenteric ischemia, among others ED workup and treatment included: ED MEDICATIONS Generic Name Dose Route Start Last Admin Trade Name Freq PRN Reason Stop Dose Admin Atorvastatin Calcium 40 mg 03/15/24 21:00 Atorvastatin 40mg Tablet PO 04/14/24 20:59 HS [facility] Clopidogrel Bisulfate 75 mg 03/16/24 09:00 Clopidogrel 75mg Tab PO 04/15/24 08:59 DAILY [facility] Hydralazine HCl 10 mg 03/15/24 21:00 Hydralazine 10mg Tablet PO 04/14/24 20:59 TID [facility] Morphine Sulfate 4 mg 03/15/24 14:28 03/15/24 15:49 Morphine 4mg/Ml Syringe IV 04/14/24 14:27 4 mg Q4HP PRN Administration Severe Pain (7-10) Non-Formulary Medication 100 mg 03/16/24 09:00 Atenolol PO 04/15/24 08:59 DAILY [facility] Phenytoin Sodium 100 mg 03/15/24 21:00 Phenytoin 100mg Capsule PO 04/14/24 20:59 TID [facility] Polyethylene Glycol 17 gm 03/15/24 15:00 03/15/24 17:47 Polyethylene Glycol 3350 17 Gm Packet PO 04/14/24 14:59 17 gm Q6H EVI Administration Ramipril 10 mg 03/15/24 21:00 Ramipril 10mg Capsule PO 04/14/24 20:59 BID [facility] Sennosides 8.6 mg 03/15/24 21:00 Senna 8.6mg Tablet PO 04/14/24 20:59 HS [facility] Timolol Maleate 0.05 ml 03/15/24 21:00 Timolol 0.5% Opth Soln 5ml OP 04/14/24 20:59 BID [facility] Discontinued Medications Generic Name Dose Route Start Last Admin Trade Name Freq PRN Reason Stop Dose Admin Hydromorphone HCl 0.5 mg 03/15/24 08:52 03/15/24 09:15 Hydromorphone 4 Mg/Ml Syringe IV 03/15/24 08:53 0.5 mg ONCE ONE Administration Hydromorphone HCl 0.5 mg 03/15/24 12:30 03/15/24 12:20 Hydromorphone 2mg/Ml Syringe IV 03/15/24 12:31 0.5 mg ONCE ONE Administration Lactated Ringer's 1,000 mls @ 999 mls/hr 03/15/24 08:52 03/15/24 09:13 Lactated Ringer's 1000 Ml Bag IV 03/15/24 09:52 999 mls/hr .Q1H1M ONE Administration Iopamidol 100 ml 03/15/24 09:48 03/15/24 09:49 Iopamidol-370 (76%);100ml Bottle IV 03/15/24 09:49 100 ml ONCE ONE Administration Morphine Sulfate 8 mg 03/15/24 14:00 03/15/24 13:55 Morphine 8mg/Ml Syringe IV 03/15/24 14:01 8 mg ONCE ONE Administration Ondansetron HCl 4 mg 03/15/24 08:52 03/15/24 09:15 Ondansetron 4mg/2ml Vial IV 03/15/24 08:53 4 mg ONCE ONE Administration Sodium Chloride 50 ml 03/15/24 09:48 03/15/24 09:49 0.9 % Sodium Chloride 50 Ml Vial IV 03/15/24 09:49 50 ml ONCE ONE Administration Sodium Chloride 10 ml 03/15/24 09:48 03/15/24 09:49 Sodium Chloride 0.9% 10ml Syr (Rad Only) IV 03/15/24 09:49 10 ml ONCE ONE Administration ORDERS Category Date Time Status CT angio abdomen pelvis Stat Cat Scan 03/15/24 08:52 Completed CTA Chest [CT angio chest PE protocol] Stat Cat Scan 03/15/24 08:52 Completed CBC w/Auto Diff [Complete Blood Count Auto Diff] Stat Lab 03/15/24 08:09 Completed CMP [Comprehensive Metabolic Panel] Stat Lab 03/15/24 08:09 Completed Complete Blood Count Auto Diff AMLAB Lab 03/16/24 06:00 Ordered Comprehensive Metabolic Panel AMLAB Lab 03/16/24 06:00 Ordered Lipase Stat Lab 03/15/24 08:09 Completed Magnesium AMLAB Lab 03/16/24 06:00 Ordered PT INR [Prothrombin Time INR] Stat Lab 03/15/24 08:09 Completed Troponin I Q3H Lab 03/15/24 08:09 Completed Troponin I Q3H Lab 03/15/24 12:10 Completed Troponin I Q3H Lab 03/15/24 15:00 Completed Urinalysis and Microscopic Stat Lab 03/15/24 09:48 Completed Labs were independently interpreted by me, significant for no acute findings Imaging was independently visualized and interpreted by me, significant for interval progression of metastatic disease, no acute surgical pathology My clinical impression at this time is most consistent with cancer related pain. After shared decision making with family, credit coordinator, patient, he will benefit from admission for further management of his breakthrough pain. The patient was admitted to the hospitalist service. Critical Care Critical Care Time Critical Care Time: No
--- NOTE | 2024-03-15 08:41 | PC.NURSE ---
DR SALTER AT BEDSIDE
--- NOTE | 2024-03-15 08:52 | CT_ITS ---
FINAL REPORT TECHNIQUE: Pre-and postcontrast images of the abdomen through the pelvis were performed by computed tomography. Extensive 3-D reconstruction images were performed. A CTA was performed. This study was performed with techniques to keep radiation doses as low as reasonably achievable (ALARA). Individualized dose reduction techniques using automated exposure control or adjustment of mA and/or kV according to the patient's size were employed. CLINICAL HISTORY: n/v/ hx cancer, ischemia vs. constipation concerns COMPARISON: CT abdomen and pelvis 02/17/2024 FINDINGS: ABDOMEN: Precontrast images demonstrate small nonobstructing stones in the renal collecting systems bilaterally. The kidneys are otherwise unremarkable. The liver is homogeneous. The gallbladder is surgically absent. The spleen and pancreas are unremarkable. There are bilateral adrenal masses measuring 3.8 x 2.4 cm on the right and 7.7 x 7.1 cm on the left. The mass on the left has markedly increased compared to the prior study. There are multiple small lymph nodes in the retroperitoneum and mesentery. PELVIS: The appendix is not identified. There is a mild amount of stool in the colon. There is no evidence of ischemia. There is moderate sigmoid diverticulosis without evidence of diverticulitis. The urinary bladder is normal in size and configuration. The bony pelvis is unremarkable. CTA: There is calcification at the origins of the celiac axis and SMA with mild narrowing. There is GIO is patent. There are dense vascular calcifications at the origins of the renal arteries with less than 50% stenosis bilaterally. IMPRESSION: Adrenal masses, left significantly larger in size and consistent with progressive metastatic disease. Small mesenteric and retroperitoneal nodes more evident than on the prior study and may be related to metastatic adenopathy. Small bilateral nonobstructing kidney stones. Mild amount of stool without evidence of ischemia. Reviewed, Interpreted and Dictated by Arsenio Rodríguez MD Transcribed by Anna Marie Lepe Authenticated and . [facility]
--- NOTE | 2024-03-15 08:52 | CT_ITS ---
FINAL REPORT TECHNIQUE: The patient was injected with IV contrast. Axial images were obtained through the chest in a PE protocol. 3-D reconstruction images were also performed. Individualized dose reduction techniques using automated exposure control or adjustment of the MA and/or KV according to patient's size were employed. CLINICAL HISTORY: soa, hx cancer COMPARISON: 02/14/2024 FINDINGS: Mediastinal vasculature is adequately opacified. No pulmonary artery filling defects are identified to suggest PE. There is no aortic dissection. There is no axillary adenopathy. There is no hilar or mediastinal adenopathy. The heart size is normal. There is no pericardial or pleural effusion. There is a nodule in the periphery of the right lower lobe measuring 7 mm best seen on image 63 of series 5. There is irregular linear density in the left upper lobe measuring 2.4 cm best seen on image 33 of series 5, probably related to parenchymal scarring. There is a 2nd nodule in the left upper lobe measuring 6 mm best seen on image 58 of series 5. There is a stable 10 mm right upper lobe nodule best seen on image 16 of series 5. There is a 9 mm pleural-based nodule in the posterior right lower lobe well seen on image 84 of series 5. IMPRESSION: Left upper lobe nodule, larger than previous. Right upper and lower lobe nodules concerning for metastases, stable. Stable linear density in the left upper lobe, probably post inflammatory/posttreatment change. Reviewed, Interpreted and Dictated by Arsenio Rodríguez MD Transcribed by Nia Lora Authenticated and [facility]
[2024-03-15 09:04] LABS: Basophils # 0.1 K/mm3 (0-0.2); Basophils % 0.7 % (0.1-2.0); Eosinophils # 0.4 K/mm3 (0.0-0.4); Eosinophils % 4.7 % (0.1-12.0); Hematocrit 37.7 % (42.0-52.0); Hemoglobin 11.9 g/dL (14.1-18.0); Lymphocytes % 11.4 % (10-50); Mean Corpuscular HGB Conc 31.5 g/dL (31.8-35.4); Mean Corpuscular Hemoglobin 32.7 pg (27.0-31.2); Monocytes # 0.5 K/mm3 (0.1-1.0); Monocytes % 5.3 % (1.7-9.3); Neutrophils # 6.8 K/mm3 (1.8-7.8); Neutrophils % 77.9 % (37.0-80.0); Platelet Count 406 K/mm3 (142-424); Red Blood Count 3.63 M/mm3 (4.60-6.20); Red Cell Distribution Width 15.3 % (11.5-17.5); White Blood Count 8.7 K/mm3 (4.8-10.8)
--- NOTE | 2024-03-15 09:04 | PC.NURSE ---
pt asked to use restroom. pts family stated he cant walk requested urinal. output 100ml. pt requested warm blankets.
[2024-03-15 09:08] LABS: Chloride 104 mmol/L (98-107)
[2024-03-15 09:09] LABS: Potassium 3.6 mmoL/L (3.5-5.1); Sodium 137 mmol/L (136-145)
[2024-03-15 09:10] LABS: INR 1.01 (0.9-1.1); Prothrombin Time 10.9 seconds (10.1-12.5)
[2024-03-15 09:12] LABS: Alanine Aminotransferase 13 U/L (12-78); Albumin Level 3.3 g/dl (3.5-5.0); Albumin/Globulin Ratio 0.9 (1.1-1.8); Alkaline Phosphatase 158 U/L (38-126); Anion Gap 6.6 mEq/L (5-15); Aspartate Amino Transferase 31 U/L (17-59); Bilirubin,Total 0.4 mg/dl (0.2-1.3); Blood Urea Nitrogen 11 mg/dl (9-20); Calcium 8.4 mg/dl (8.4-10.2); Carbon Dioxide 30 mmol/L (22.0-30.0); Creatinine Clearance Estimated 50 mL/min (50-200); Estimated Glomerular Filt Rate 130 ml/min (>60); GFR (African American) 157 ML/MIN (>60); Globulin 3.7 g/dL (1.3-3.2); Glucose 103 mg/dl (74-100); Lipase 103 U/L (23-300)
[2024-03-15] MEDS: LACTATED RINGERS 1000ML 1,000 ML 999 ML IV (09:13)
[2024-03-15] MEDS: ONDANSETRON 4MG/2ML VIAL 4 MG IV (09:15)
[2024-03-15 09:28] LABS: Troponin I < 0.01 ng/ml (0.00-0.034)
[2024-03-15] MEDS: IOPAMIDOL-370 (76%);100ML BOTTLE 100 ML IV (09:49)
[2024-03-15] MEDS: 0.9 % SODIUM CHLORIDE 50 ML VIAL IV (09:49)
[2024-03-15] MEDS: SODIUM CHLORIDE 0.9% 10ML SYR (RAD ONLY) 10 ML IV (09:49)
[2024-03-15 09:50] LABS: Microscopic, Urine URINE MICROSCOPIC (MICROSCOPIC)
--- NOTE | 2024-03-15 09:52 | PC.NURSE ---
ASSISTED WITH URINAL
[2024-03-15 09:56] LABS: Appearance,Urine CLEAR (Clear); Bilirubin,Urine Negative (Negative); Blood, Urine Negative (Negative); Color,Urine YELLOW (Yellow); Glucose,Urine (UA) Negative (Negative); Ketones,Urine Negative (Negative); Leukocyte Esterase,Urine Negative (Negative); Nitrate,Urine Negative (Negative); PH,Urine 7.5 (5.0-8.5); Protein,Urine Negative (Negative); Urobilinogen,Urine 0.2 EU/dl (0.2)
--- NOTE | 2024-03-15 10:09 | PC.NURSE ---
Assisted patient, with restroom.
[2024-03-15 10:19] LABS: Amorphous Sediment,Urine 2+ /lpf; Bacteria,Urine 1+ /lpf; RBC,Urine Occasional #/hpf (0-3); Squamous Epithelial Cell,Urine Occasional #/hpf (0-5); WBC,Urine Occasional #/hpf (0-3)
--- NOTE | 2024-03-15 10:41 | PC.NURSE ---
EMPTIED 175 OUT OF URINAL
--- NOTE | 2024-03-15 12:10 | PC.NURSE ---
REPEAT TROP SENT, PT REPOSITIONED ON LEFT SIDE. ADDITIONAL WARM BLANKET AND PILLOW PROVIDED. FAMILY AT BEDSIDE. PT REQUESTS PAIN MEDICATION, DR SALTER NOTIFIED
--- NOTE | 2024-03-15 12:13 | PC.NURSE ---
PT IS RESTING IN BED RN PAPITO WAS AT BS WITH PT NO NEEDS AT THIS TIME FAMILY AND CALL LIGHT AT BS
[2024-03-15] MEDS: HYDROMORPHONE 2MG/ML SYRINGE 0.5 MG IV (12:20)
[2024-03-15 12:53] LABS: Troponin I < 0.01 ng/ml (0.00-0.034)
--- NOTE | 2024-03-15 13:10 | PC.NURSE ---
ROUNDED ON PT, PT RESTING WITH EYES CLOSED. FAMILY REPORTS PT IS MISERABLE REQUESTS MD AT BEDSIDE. DR SALTER NOTIFIED
--- NOTE | 2024-03-15 13:34 | PC.NURSE ---
DR SALTER AT BEDSIDE
[2024-03-15] MEDS: MORPHINE 8MG/ML SYRINGE 8 MG IV (13:55)
--- NOTE | 2024-03-15 14:18 | PC.NURSE ---
Dr. Terrazas speaking with Dr. Damon at this time regarding possible admission.
--- NOTE | 2024-03-15 14:34 | EXP.HP ---
History of Present Illness *Admission Date: 03/15/24 *Reason for visit:: abdominal pain *History of present illness: Mr. Rodriguez is a 78-year-old male on hospice for metastatic lung cancer. He presented to the ER because of worsening epigastric pain that has progressed over the past 24 to 48 hours. It was worse overnight with him waking this morning having significant pain and difficulty sleeping. Last bowel movement was 2 to 3 days ago. Workup in the ER showed enlarging left adrenal mass along with moderate stool burden on CT. Given difficulty with pain control at home, medicine was contacted for admission and further management of intractable cancer pain. On evaluation, patient denies any shortness of breath or chest pain. No nausea or vomiting. Has very poor appetite. Has not been eating well. Denies any blood in stool. Denies any confusion or syncope. [facility] Disclaimer: The information contained in this section may have been updated after the patient was seen, as this information can be updated by other users. Medical History (Updated 03/15/24 @ 18:23 by Pranav Damon MD) Seizure disorder Glaucoma History of cataract Allergies Hyperlipidemia Hypertension Skin cancer Surgical History History of surgery S/P hernia surgery History of cholecystectomy Family History Other No significant family history Social History Smoking Status: Unknown if ever smoked alcohol intake: never substance use type: denies use current occupational status: retired Travel in the last 8 weeks: None Meds Home Medications and Allergies Home Medications Medication Instructions Recorded Confirmed Type atenolol 100 mg tablet 100 mg PO DAILY 09/09/19 03/15/24 History atorvastatin 40 mg tablet 40 mg PO HS 09/09/19 03/15/24 History clopidogrel 75 mg tablet 75 mg PO DAILY 09/09/19 03/15/24 History ramipril 10 mg capsule 10 mg PO BID 09/09/19 03/15/24 History aspirin 325 mg tablet (Mary Kate 325 mg PO DAILY 09/02/23 03/15/24 History Aspirin) hydralazine 10 mg tablet 10 mg PO TID 09/02/23 03/15/24 History phenytoin sodium extended 100 mg 100 mg PO TID 09/02/23 03/15/24 History capsule hydrochlorothiazide 25 mg tablet 25 mg PO DAILY 09/30/23 03/15/24 History timolol maleate 0.5 % eye drops 1 drp Eye-Both BID 09/30/23 03/15/24 History mineral oil (Fleet Mineral Oil 118 ml PA DAILY PRN constipation 02/17/24 03/15/24 Rx enema) #133 mL polyethylene glycol 3350 17 17 g PO DAILY #510 grams 02/17/24 03/15/24 Rx gram/dose oral powder (Miralax) sennosides 8.6 mg tablet (Senna 8.6 mg PO HS #30 tabs 02/17/24 03/15/24 Rx Lax) New Prescriptions to Start Prescriptions: Allergies Allergy/AdvReac Type Severity Reaction Status Date / Time indomethacin [From INDOCIN] Allergy Unknown SEIZURES Verified 01/27/24 13:56 Exam Data for Last 24 hours Vital signs and Labs for Last 24 Hours: Temp Pulse Resp BP Pulse Ox O2 Del Method 98.0 F 64 12 140/83 89 L Room Air 03/15/24 08:32 03/15/24 14:00 03/15/24 14:00 03/15/24 14:00 03/15/24 14:00 03/15/24 13:30 Laboratory Results - last 24 hr 03/15/24 08:09: WBC 8.7, RBC 3.63 L, Hgb 11.9 L, Hct 37.7 L, MCV 104.0 H, MCH 32.7 H, MCHC 31.5 L, RDW 15.3, Plt Count 406, MPV 8.0, Neut % (Auto) 77.9, Lymph % (Auto) 11.4, [place] % (Auto) 5.3, Eos % (Auto) 4.7, Baso % (Auto) 0.7, Neut # (Auto) 6.8, Lymph # (Auto) 1.0, [place] # (Auto) 0.5, Eos # (Auto) 0.4, Baso # (Auto) 0.1, PT 10.9, INR 1.01, Sodium 137, Potassium 3.6, Chloride 104, Carbon Dioxide 30, Anion Gap 6.6, BUN 11, Creatinine 0.60 L, Estimated Creat Clear 50, Estimated GFR 130, Est GFR ( Amer) 157, Glucose 103 H, Calcium 8.4, Total Bilirubin 0.4, AST 31, ALT 13, Alkaline Phosphatase 158 H, Troponin I < 0.01, Total Protein 7.0, Albumin 3.3 L, Globulin 3.7 H, Albumin/Globulin Ratio 0.9 L, Lipase 103 03/15/24 09:48: Urine Color Yellow, Urine Appearance Clear, Urine pH 7.5, Ur Specific [place] 1.020, Urine Protein Negative, Urine Glucose (UA) Negative, Urine Ketones Negative, Urine Blood Negative, Urine Nitrate Negative, Urine Bilirubin Negative, Urine Urobilinogen 0.2, Ur Leukocyte Esterase Negative, Urine RBC Occasional, Urine WBC Occasional, Ur Squamous Epith Cells Occasional, Amorphous Sediment 2+, Urine Bacteria 1+ 03/15/24 12:10: Troponin I < 0.01 I & O for Last 24 hours: Intake & Output 03/12/24 03/13/24 03/14/24 03/15/24 23:59 23:59 23:59 23:59 Weight 58.967 kg Constitutional Constitutional: no acute distress, cachectic, chronically ill appearing and cooperative *Routine HEENT Exam Head: Present normocephalic Eye: Present EOMI and PERRL ENT: Present mucous membranes moist Comments: Bitemporal wasting. *Routine Neck Exam Neck: Present supple; Absent lymphadenopathy *Routine Respiratory Exam Respiratory: Present CTA bilaterally; Absent rhonchi, wheezes or crackles *Routine Cardiovascular Exam Cardiovascular: Present RRR *Routine Abdominal Exam Abdominal: Present soft, normoactive bowel sounds and tenderness (Diffuse, worse in the left upper abdomen) Comments: Scaphoid *Routine Rectal Exam Rectal:: deferred *Routine Genitalia Exam Genitalia:: deferred *Routine Extremities Exam Extremities: Absent cyanosis, clubbing or edema *Routine Skin Exam Skin: Present warm; Absent rash *Routine Neurological Exam Neurological: Present alert, oriented X3 and moving all extremities; Absent altered mental status Assessment and Plan *Assessment and plan (1) Cancer related pain: Status: Acute Category: Medical Code(s): G89.3 - Neoplasm related pain (acute) (chronic) (2) Metastatic lung cancer (metastasis from lung to other site): Status: Acute Category: Medical Code(s): C34.90 - Malignant neoplasm of unspecified part of unspecified bronchus or lung (3) Adrenal mass: Status: Acute Category: Medical Code(s): E27.8 - Other specified disorders of adrenal gland (4) Constipation: Status: Acute Category: Medical Code(s): K59.00 - Constipation, unspecified (5) Glaucoma: Status: Acute Category: Medical Code(s): H40.9 - Unspecified glaucoma (6) Hypertension: Status: Acute Category: Medical Code(s): I10 - Essential (primary) hypertension (7) Seizure disorder: Status: Acute Category: Medical Code(s): G40.909 - Epilepsy, unspecified, not intractable, without status epilepticus (8) Severe protein-calorie malnutrition: Status: Acute Category: Medical Code(s): E43 - Unspecified severe protein-calorie malnutrition Plan 78-year-old male with 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 Worsening abdominal pain. Presented to the ER with worsening pain. ER requested admission for pain control, constipation, further management. Medicine agreed to admit. Hospice contacted, plan to make adjustments to regimen prior to discharge home in the next day or 2. 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 Enlarging left adrenal mass -CT abdomen obtained, personally reviewed and shows worsening adrenal mass. Pain in the left upper abdomen. Also has moderate stool burden. -Initiate morphine IV 4 mg every 4 hours as needed. Monitor for pain needs. Plan to transition to Roxanol at discharge to continue pain control. -Stable on room air. -CBC, CMP, magnesium ordered for the morning - white cell count normal at 8.7. Hemoglobin 11.9, mild anemia. Kidney function normal with creatinine 0.6, BUN 11. Electrolytes normal with sodium 137, potassium 3.6, chloride 104. Normal liver function. Constipation: Initiate aggressive bowel regimen. Continue home sennosides. MiraLAX every 6 hours scheduled. Goal 1-2 bowel movements a day. Can you home regimen for hypertension including atenolol 100 mg daily, hydralazine 10 mg 3 times a day, HCTZ 25mg daily, ramipril 10 mg twice daily Continue home timolol eyedrops twice daily for glaucoma Continue home phenytoin 100 mg 3 times a day for seizure disorder DNR Regular diet
--- NOTE | 2024-03-15 14:34 | PC.NURSE ---
pt assigned to room 205 at this time. admission called.
--- NOTE | 2024-03-15 14:38 | CARE MANAGER ---
Addendum entered by Kate Apple 03/17/24 10:00: The plan for this patient is to discharge home and resume Hospice services at home. I have updated patient's daughter (Padmini) and she is agreeable w/ this plan. Addendum entered by Kate Apple 03/16/24 12:18: The plan for this patient per MD is to discharge either to [facility] [facility] for respite tomorrow if a bed is available. If a bed is not available then the plan is to return home w/ sitters. Patient's daughter did not want a private sitters list at this time. Addendum entered by Karen Ozuna RN 03/16/24 09:51: SALVADOR Arroyo with [facility] saw patient yesterday and states admission is related. She had hoped to be able to get patient's pain under control and send him home on new regimen today, but daughter is uncomfortable taking patient home. Hospice is looking into [facility] for respite stay. She hopes to have a discharge disposition for him today. Original Note: Spoke with Nel at [facility]. Someone will likely be up to see him this afternoon from Hospice.
--- NOTE | 2024-03-15 14:44 | PC.NURSE ---
Medsurg charge called for room change to room 206, admissions called.
--- NOTE | 2024-03-15 14:50 | PC.NURSE ---
report received at this time
--- NOTE | 2024-03-15 15:19 | PC.NURSE ---
arrived by stretcher from ED
[2024-03-15 15:36] LABS: Troponin I < 0.01 ng/ml (0.00-0.034)
[2024-03-15] MEDS: MORPHINE 4MG/ML SYRINGE 4 MG IV (15:49)
[2024-03-15] MEDS: POLYETHYLENE GLYCOL 3350 17 GM PACKET PO (17:47)
[2024-03-15] MEDS: SENNA 8.6MG TABLET 8.59999999999999964 MG PO (20:31)
[2024-03-15] MEDS: RAMIPRIL 10MG CAPSULE 10 MG PO (20:31)
[2024-03-15] MEDS: ATORVASTATIN 40MG TABLET 40 MG PO (20:31)
[2024-03-15] MEDS: PHENYTOIN 100MG CAPSULE 100 MG PO (20:32)
--- NOTE | 2024-03-16 02:34 | PC.NURSE ---
Patient is oriented to self and place. Very independent and will not use call iglesias to call for help. He is unsteady and a fall risk. Bed alarm on. Frequent checks made. Denies pain.
[2024-03-16 04:00] VITALS: BMI 17.6
[2024-03-16 07:25] LABS: Basophils % 0.4 % (0.1-2.0); Eosinophils # 0.3 K/mm3 (0.0-0.4); Eosinophils % 3.4 % (0.1-12.0); Hematocrit 33.1 % (42.0-52.0); Hemoglobin 10.8 g/dL (14.1-18.0); Lymphocytes # 0.7 K/mm3 (0.7-4.5); Lymphocytes % 7.7 % (10-50); Mean Corpuscular HGB Conc 32.5 g/dL (31.8-35.4); Mean Corpuscular Hemoglobin 33.1 pg (27.0-31.2); Mean Corpuscular Volume 101.8 fl (80-94); Mean Platelet Volume 7.5 fl (7.4-10.4); Monocytes # 0.6 K/mm3 (0.1-1.0); Monocytes % 6.4 % (1.7-9.3); Neutrophils # 7.5 K/mm3 (1.8-7.8); Neutrophils % 82.2 % (37.0-80.0); Platelet Count 346 K/mm3 (142-424); Red Blood Count 3.25 M/mm3 (4.60-6.20); Red Cell Distribution Width 15.5 % (11.5-17.5); White Blood Count 9.1 K/mm3 (4.8-10.8)
[2024-03-16 08:00] VITALS: BP 126/84; PULSE 70; RESP 16; TEMP 37; O2SAT 94
[2024-03-16] MEDS: CLOPIDOGREL 75MG TAB 75 MG PO (08:16)
[2024-03-16] MEDS: ATENOLOL 50MG TABLET 100 MG PO (08:16)
[2024-03-16] MEDS: TIMOLOL 0.5% OP ×2 (08:17→20:17)
[2024-03-16] MEDS: OPTH OP ×2 (08:17→20:17)
[2024-03-16] MEDS: HYDRALAZINE 10 MG PO ×3 (08:17→20:16)
[2024-03-16] MEDS: POLYETHYLENE GLYCOL 3350 17 GM PACKET PO ×2 (08:21→15:47)
[2024-03-16 08:49] LABS: Chloride 102 mmol/L (98-107)
[2024-03-16 08:50] LABS: Potassium 3.3 mmoL/L (3.5-5.1); Sodium 133 mmol/L (136-145)
[2024-03-16 08:52] LABS: Blood Urea Nitrogen 9 mg/dl (9-20); Creatinine Clearance Estimated 50 mL/min (50-200); Estimated Glomerular Filt Rate 130 ml/min (>60); GFR (African American) 157 ML/MIN (>60)
[2024-03-16 08:53] LABS: Alanine Aminotransferase 11 U/L (12-78); Albumin Level 2.7 g/dl (3.5-5.0); Albumin/Globulin Ratio 0.8 (1.1-1.8); Alkaline Phosphatase 146 U/L (38-126); Anion Gap 4.3 mEq/L (5-15); Aspartate Amino Transferase 28 U/L (17-59); Bilirubin,Total 0.6 mg/dl (0.2-1.3); Calcium 8.1 mg/dl (8.4-10.2); Carbon Dioxide 30 mmol/L (22.0-30.0); Globulin 3.3 g/dL (1.3-3.2); Glucose 92 mg/dl (74-100); Magnesium 1.7 mg/dl (1.6-2.3)
[2024-03-16] MEDS: RAMIPRIL 10MG CAPSULE 10 MG PO ×2 (09:22→20:16)
[2024-03-16] MEDS: PHENYTOIN 100MG CAPSULE 100 MG PO ×3 (09:22→20:16)
--- NOTE | 2024-03-16 12:13 | EXP.ACUTE.PN ---
Subjective *Date: 03/16/24 *Time: 12:26 Interval history: Patient and his knee pain this morning. Was on 2 L of oxygen overnight, on room air this morning. Poor p.o. intake. No nausea or vomiting. Just complains of not having much of an appetite. Drinking boost this morning. Family at bedside including son and daughter. Concerned about patient's pain. Has done well with only 2 doses of pain medication since admission. Requesting respite care with hospice. Case management assisting. Medical Exam Vital signs and Labs for Last 24 Hours: Vital Signs Temp Pulse Pulse Resp BP BP Pulse Ox 03/16/24 10:56 03/16/24 09:00 03/16/24 08:00 03/16/24 08:00 98.6 F 70 16 126/84 94 L 03/16/24 06:33 03/16/24 04:59 03/16/24 03:00 03/16/24 01:00 03/15/24 23:00 03/15/24 21:00 03/15/24 20:00 99.1 F 77 18 147/78 H 94 L 03/15/24 19:51 90 L 03/15/24 19:00 03/15/24 17:38 98.5 F 65 17 145/85 H 90 L 03/15/24 17:00 03/15/24 15:31 03/15/24 15:30 03/15/24 15:13 98.0 F 64 12 140/83 03/15/24 14:00 64 12 140/83 89 L 03/15/24 13:30 58 L 16 154/78 H 91 L 03/15/24 13:00 59 L 16 139/71 92 L 03/15/24 12:30 61 14 139/71 91 L O2 Del Method O2 Flow Rate 03/16/24 10:56 Room Air 03/16/24 09:00 Room Air 03/16/24 08:00 Room Air 03/16/24 08:00 Room Air 03/16/24 06:33 Nasal Cannula 2 03/16/24 04:59 Room Air 03/16/24 03:00 Room Air 03/16/24 01:00 Nasal Cannula 2 03/15/24 23:00 Room Air 03/15/24 21:00 Room Air 03/15/24 20:00 Nasal Cannula 2 03/15/24 19:51 Room Air 03/15/24 19:00 Room Air 03/15/24 17:38 Room Air 03/15/24 17:00 Room Air 03/15/24 15:31 Room Air 03/15/24 15:30 Room Air 03/15/24 15:13 Room Air 03/15/24 14:00 03/15/24 13:30 Room Air 03/15/24 13:00 Room Air 03/15/24 12:30 Room Air Intake and Output 03/15/24 03/16/24 03/16/24 23:59 07:59 15:59 Intake Total 270 / 510 240 / 480 240 / 480 Output Total 0 / 0 100 / 100 Balance 270 / 510 140 / 380 240 / 380 Intake: Intake, Oral Amount 270 / 510 240 / 480 240 / 480 Output: Output, Urine Amount 0 / 0 100 / 100 Other: Number of Voids 0 Number of Unmeasured Voids 1 1 Weight 58.202 kg 58.967 kg Patient Weight 03/16/24 23:59 Weight 58.967 kg Laboratory Results - last 24 hr 03/15/24 12:10: Troponin I < 0.01 03/15/24 15:00: Troponin I < 0.01 03/16/24 06:25: WBC 9.1, RBC 3.25 L, Hgb 10.8 L, Hct 33.1 L, MCV 101.8 H, MCH 33.1 H, MCHC 32.5, RDW 15.5, Plt Count 346, MPV 7.5, Neut % (Auto) 82.2 H, Lymph % (Auto) 7.7 L, [place] % (Auto) 6.4, Eos % (Auto) 3.4, Baso % (Auto) 0.4, Neut # (Auto) 7.5, Lymph # (Auto) 0.7, [place] # (Auto) 0.6, Eos # (Auto) 0.3, Baso # (Auto) 0.0, Sodium 133 L, Potassium 3.3 L, Chloride 102, Carbon Dioxide 30, Anion Gap 4.3 L, BUN 9, Creatinine 0.60 L, Estimated Creat Clear 50, Estimated GFR 130, Est GFR ( Amer) 157, Glucose 92, Calcium 8.1 L, Magnesium 1.7, Total Bilirubin 0.6, AST 28, ALT 11 L, Alkaline Phosphatase 146 H, Total Protein 6.0 L, Albumin 2.7 L D, Globulin 3.3 H, Albumin/Globulin Ratio 0.8 L I & O for Labs for Last 24 Hours: Intake & Output 03/13/24 03/14/24 03/15/24 03/16/24 23:59 23:59 23:59 23:59 Intake Total 270 / 510 480 / 480 Output Total 0 / 0 100 / 100 Balance 270 / 510 380 / 380 Weight 58.202 kg 58.967 kg Constitutional: Present no acute distress, cachectic, chronically ill appearing and cooperative Head: Present atraumatic and normocephalic Comment:: Bitemporal wasting, loss of periorbital fat; poor dentition Respiratory: Present prolonged expiratory phase and normal respiratory effort; Absent rhonchi, wheezes or crackles Cardiac: Present Reg Rate and Rhythm GI: Present soft and normal bowel sounds; Absent distention or tenderness Extremities: Present normal inspection and full ROM Skin: Present intact; Absent erythema Neuro: Present Grossly Intact, alert, awake, oriented x 3 and moves all extremities Assessment and Plan *Assessment and plan (1) Cancer related pain: Status: Acute Category: Medical Code(s): G89.3 - Neoplasm related pain (acute) (chronic) (2) Metastatic lung cancer (metastasis from lung to other site): Status: Acute Category: Medical Code(s): C34.90 - Malignant neoplasm of unspecified part of unspecified bronchus or lung (3) Adrenal mass: Status: Acute Category: Medical Code(s): E27.8 - Other specified disorders of adrenal gland (4) Constipation: Status: Acute Category: Medical Code(s): K59.00 - Constipation, unspecified (5) Glaucoma: Status: Acute Category: Medical Code(s): H40.9 - Unspecified glaucoma (6) Hypertension: Status: Acute Category: Medical Code(s): I10 - Essential (primary) hypertension (7) Seizure disorder: Status: Acute Category: Medical Code(s): G40.909 - Epilepsy, unspecified, not intractable, without status epilepticus (8) Severe protein-calorie malnutrition: Status: Acute Category: Medical Code(s): E43 - Unspecified severe protein-calorie malnutrition Plan 78-year-old male with 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 Worsening abdominal pain. Presented to the ER with worsening pain. ER requested admission for pain control, constipation, further management. Medicine agreed to admit. Tolerating current pain regimen. Anticipate discharge in the next day. Awaiting possible respite care at [facility]. 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 Enlarging left adrenal mass Constipation -CT abdomen obtained, personally reviewed and shows worsening adrenal mass. Pain in the left upper abdomen. Also has moderate stool burden. -Continue bowel regimen with MiraLAX every 6 hours scheduled and sennosides. Goal 1-2 bowel movements a day. No bowel movement yet but is passing gas. -Continue morphine IV 4 mg every 4 hours as needed. Monitor for pain needs. Plan to transition to Roxanol at discharge to continue pain control. - white cell count normal at 9.1. Hemoglobin 10.8. Continue home regimen for hypertension including atenolol 100 mg daily, hydralazine 10 mg 3 times a day, HCTZ 25mg daily, ramipril 10 mg twice daily Continue home timolol eyedrops twice daily for glaucoma Continue home phenytoin 100 mg 3 times a day for seizure disorder Anticipate discharge in the next 24 hours either to [facility] for respite care or home with assistance while awaiting room to become available at [facility]. Hospice continuing to assist with care. DNR Regular diet
[2024-03-16 16:00] VITALS: BP 101/59; PULSE 61; RESP 18; TEMP 37; O2SAT 92
--- NOTE | 2024-03-16 17:59 | PC.NURSE ---
A&OX4. TOLERATING RA WELL TODAY. FAMILY HAS REMAINED AT BEDSIDE. PT HAS HAD NO C/O OF PAIN THIS SHIFT. PT HAS HAD NO APPETITE BUT HAS TAKEN SOME SIPS OF AN ENSURE, WATER, AND PEPSI. HAS BEEN UP WITH X1 ASSIST TO THE BEDSIDE COMMODE. HAS HAD U/O, BUT NO BM. SEEMS TO BE IN GOOD SPIRITS. VSS.
[2024-03-16 20:00] VITALS: BP 129/72; PULSE 64; RESP 18; TEMP 36.9; O2SAT 93
[2024-03-16] MEDS: SENNA 8.6MG TABLET 8.59999999999999964 MG PO (20:16)
[2024-03-16] MEDS: ATORVASTATIN 40MG TABLET 40 MG PO (20:17)
[2024-03-17 04:00] VITALS: BP 130/72; PULSE 65; RESP 18; TEMP 36.8; O2SAT 94; BMI 17.6
--- NOTE | 2024-03-17 04:58 | PC.NURSE ---
pt is a&ox4. saturating well on room air. has no complaints of pain tonight. been up to the [facility] with assistance, has voided multiple times. no bowel movement, refusing miralax, educated pt on importance of taking it. bed alarm on.
[2024-03-17 07:53] VITALS: O2SAT 94
[2024-03-17 08:00] VITALS: BP 123/67; PULSE 72; RESP 20; TEMP 36.6; O2SAT 98
--- NOTE | 2024-03-17 08:07 | P.DS_ITS ---
General Admission date:: 03/15/24 Discharge date: 03/17/24 HPI HPI HPI: Mr. Rodriguez is a 78-year-old male on hospice for metastatic lung cancer. He presented to the ER because of worsening epigastric pain that has progressed over the past 24 to 48 hours. It was worse overnight with him waking this morning having significant pain and difficulty sleeping. Last bowel movement was 2 to 3 days ago. Workup in the ER showed enlarging left adrenal mass along with moderate stool burden on CT. Given difficulty with pain control at home, medicine was contacted for admission and further management of intractable can cer pain. On evaluation, patient denies any shortness of breath or chest pain. No nausea or vomiting. Has very poor appetite. Has not been eating well. Denies any blood in stool. Denies any confusion or syncope. 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 Worsening abdominal pain. Presented to the ER with worsening pain. ER requested admission for pain control, constipation, further management. Medicine agreed to admit. Tolerating current pain regimen. Patient did well during admission. Pain well-controlled. Received only 2 doses of pain meds. No pain meds needed for 36 hours prior to discharge. Stable on room air. Poor p.o. intake but tolerating at least 1-2 boost shakes a day. Stable to discharge home with hospice. Hospice and family awaiting possible placement at [place] for respite care. 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 Enlarging left adrenal mass Constipation -CT abdomen obtained, personally reviewed and shows worsening adrenal mass. Pain in the left upper abdomen. Also has moderate stool burden. Initiated on bowel regimen and pain control. Continue MiraLAX and senna daily. No bowel movement during admission but has significant active bowel sounds and is passing gas. Pain stable. No pain control needed for 36 hours prior to discharge. Will transition to hydrocodone 5 mg / 325 mg as needed every 6 hours for breakthrough pain. Discussed longer benefit of control. Family also concern for sedative effect of morphine. Stable to discharge in the care of hospice and family. Continue home regimen for hypertension including atenolol 100 mg daily, hydralazine 10 mg 3 times a day, ramipril 10 mg twice daily. Discontinue HCTZ due to poor p.o. intake, do not want to overdrive patient. Discontinued aspirin, and Lipitor. Do not see benefit of these medications at this time for patient Continue home timolol eyedrops twice daily for glaucoma Continue home phenytoin 100 mg 3 times a day for seizure disorder Exam Data for Last 24 hours Vital signs and Labs for Last 24 Hours: Temp Pulse Resp BP Pulse Ox O2 Del Method O2 Flow Rate 99.1 F 77 18 147/78 H 94 L Nasal Cannula 2 03/15/24 20:00 03/15/24 20:00 03/15/24 20:00 03/15/24 20:00 03/15/24 20:00 03/16/24 06:33 03/16/24 06:33 Laboratory Results - last 24 hr 03/15/24 08:09: WBC 8.7, RBC 3.63 L, Hgb 11.9 L, Hct 37.7 L, MCV 104.0 H, MCH 32.7 H, MCHC 31.5 L, RDW 15.3, Plt Count 406, MPV 8.0, Neut % (Auto) 77.9, Lymph % (Auto) 11.4, Amelia % (Auto) 5.3, Eos % (Auto) 4.7, Baso % (Auto) 0.7, Neut # (Auto) 6.8, Lymph # (Auto) 1.0, Amelia # (Auto) 0.5, Eos # (Auto) 0.4, Baso # (Auto) 0.1, PT 10.9, INR 1.01, Sodium 137, Potassium 3.6, Chloride 104, Carbon Dioxide 30, Anion Gap 6.6, BUN 11, Creatinine 0.60 L, Estimated Creat Clear 50, Estimated GFR 130, Est GFR ( Amer) 157, Glucose 103 H, Calcium 8.4, Total Bilirubin 0.4, AST 31, ALT 13, Alkaline Phosphatase 158 H, Troponin I < 0.01, Total Protein 7.0, Albumin 3.3 L, Globulin 3.7 H, Albumin/Globulin Ratio 0.9 L, Lipase 103 03/15/24 09:48: Urine Color Yellow, Urine Appearance Clear, Urine pH 7.5, Ur Specific [place] 1.020, Urine Protein Negative, Urine Glucose (UA) Negative, Urine Ketones Negative, Urine Blood Negative, Urine Nitrate Negative, Urine Bilirubin Negative, Urine Urobilinogen 0.2, Ur Leukocyte Esterase Negative, Urine RBC Occasional, Urine WBC Occasional, Ur Squamous Epith Cells Occasional, Amorphous Sediment 2+, Urine Bacteria 1+ 03/15/24 12:10: Troponin I < 0.01 03/15/24 15:00: Troponin I < 0.01 03/16/24 06:25: WBC 9.1, RBC 3.25 L, Hgb 10.8 L, Hct 33.1 L, MCV 101.8 H, MCH 33.1 H, MCHC 32.5, RDW 15.5, Plt Count 346, MPV 7.5, Neut % (Auto) 82.2 H, Lymph % (Auto) 7.7 L, Amelia % (Auto) 6.4, Eos % (Auto) 3.4, Baso % (Auto) 0.4, Neut # (Auto) 7.5, Lymph # (Auto) 0.7, Amelia # (Auto) 0.6, Eos # (Auto) 0.3, Baso # (Auto) 0.0 I & O for Last 24 hours: Intake & Output 03/13/24 03/14/24 03/15/24 03/16/24 23:59 23:59 23:59 23:59 Intake Total 270 / 510 240 / 240 Output Total 0 / 0 100 / 100 Balance 270 / 510 140 / 140 Weight 58.202 kg 58.967 kg Constitutional Constitutional: no acute distress, cachectic, chronically ill appearing and cooperative *Routine HEENT Exam Head: Present normocephalic Eye: Present EOMI and PERRL ENT: Present mucous membranes moist Comments: Bitemporal wasting, loss of periorbital fat *Routine Neck Exam Neck: Present supple; Absent lymphadenopathy *Routine Respiratory Exam Respiratory: Present CTA bilaterally; Absent rhonchi, wheezes or crackles *Routine Cardiovascular Exam Cardiovascular: Present RRR *Routine Abdominal Exam Abdominal: Present soft and normoactive bowel sounds; Absent tenderness Comments: Scaphoid *Routine Rectal Exam Patient deferred: visual exam *Routine Exam Patient deferred: penile exam *Routine Extremities Exam Extremities: Absent cyanosis, clubbing or edema Comments: Thin, sarcopenia *Routine Skin Exam Skin: Present warm; Absent rash Comments: Numerous seborrheic keratoses, scars from previous biopsies and excisions *Routine Neurological Exam Neurological: Present alert, oriented X3 and moving all extremities; Absent altered mental status Results Data Completed and Pending Labs on day of discharge: Labs from last 24 hours 03/16/24 03/15/24 03/15/24 06:25 15:00 12:10 WBC 9.1 RBC 3.25 L Hgb 10.8 L Hct 33.1 L MCV 101.8 H MCH 33.1 H MCHC 32.5 RDW 15.5 Plt Count 346 MPV 7.5 Neut % (Auto) 82.2 H Lymph % (Auto) 7.7 L Amelia % (Auto) 6.4 Eos % (Auto) 3.4 Baso % (Auto) 0.4 Neut # (Auto) 7.5 Lymph # (Auto) 0.7 Amelia # (Auto) 0.6 Eos # (Auto) 0.3 Baso # (Auto) 0.0 PT INR Sodium Potassium Chloride Carbon Dioxide Anion Gap BUN Creatinine Estimated Creat Clear Estimated GFR Est GFR ( Amer) Glucose Calcium Total Bilirubin AST ALT Alkaline Phosphatase Troponin I < 0.01 < 0.01 Total Protein Albumin Globulin Albumin/Globulin Ratio Lipase Urine Color Urine Appearance Urine pH Ur Specific [place] Urine Protein Urine Glucose (UA) Urine Ketones Urine Blood Urine Nitrate Urine Bilirubin Urine Urobilinogen Ur Leukocyte Esterase Urine RBC Urine WBC Ur Squamous Epith Cells Amorphous Sediment Urine Bacteria 03/15/24 03/15/24 09:48 08:09 WBC 8.7 RBC 3.63 L Hgb 11.9 L Hct 37.7 L MCV 104.0 H MCH 32.7 H MCHC 31.5 L RDW 15.3 Plt Count 406 MPV 8.0 Neut % (Auto) 77.9 Lymph % (Auto) 11.4 Amelia % (Auto) 5.3 Eos % (Auto) 4.7 Baso % (Auto) 0.7 Neut # (Auto) 6.8 Lymph # (Auto) 1.0 Amelia # (Auto) 0.5 Eos # (Auto) 0.4 Baso # (Auto) 0.1 PT 10.9 INR 1.01 Sodium 137 Potassium 3.6 Chloride 104 Carbon Dioxide 30 Anion Gap 6.6 BUN 11 Creatinine 0.60 L Estimated Creat Clear 50 Estimated GFR 130 Est GFR ( Amer) 157 Glucose 103 H Calcium 8.4 Total Bilirubin 0.4 AST 31 ALT 13 Alkaline Phosphatase 158 H Troponin I < 0.01 Total Protein 7.0 Albumin 3.3 L Globulin 3.7 H Albumin/Globulin Ratio 0.9 L Lipase 103 Urine Color Yellow Urine Appearance Clear Urine pH 7.5 Ur Specific [place] 1.020 Urine Protein Negative Urine Glucose (UA) Negative Urine Ketones Negative Urine Blood Negative Urine Nitrate Negative Urine Bilirubin Negative Urine Urobilinogen 0.2 Ur Leukocyte Esterase Negative Urine RBC Occasional Urine WBC Occasional Ur Squamous Epith Cells Occasional Amorphous Sediment 2+ Urine Bacteria 1+ DS: Diagnosis Discharge Diagnosis (1) Cancer related pain: Status: Acute Code(s): G89.3 - Neoplasm related pain (acute) (chronic) (2) Metastatic lung cancer (metastasis from lung to other site): Status: Acute Code(s): C34.90 - Malignant neoplasm of unspecified part of unspecified bronchus or lung (3) Adrenal mass: Status: Acute Code(s): E27.8 - Other specified disorders of adrenal gland (4) Constipation: Status: Acute Code(s): K59.00 - Constipation, unspecified (5) Glaucoma: Status: Acute Code(s): H40.9 - Unspecified glaucoma (6) Hypertension: Status: Acute Code(s): I10 - Essential (primary) hypertension (7) Seizure disorder: Status: Acute Code(s): G40.909 - Epilepsy, unspecified, not intractable, without status epilepticus (8) Severe protein-calorie malnutrition: Status: Acute Code(s): E43 - Unspecified severe protein-calorie malnutrition Meds Home Medications and Allergies Home Medications Medication Instructions Recorded Confirmed Type atenolol 100 mg tablet 100 mg PO DAILY 09/09/19 03/15/24 History clopidogrel 75 mg tablet 75 mg PO DAILY 09/09/19 03/15/24 History ramipril 10 mg capsule 10 mg PO BID 09/09/19 03/15/24 History hydralazine 10 mg tablet 10 mg PO TID 09/02/23 03/15/24 History phenytoin sodium extended 100 mg 100 mg PO TID 09/02/23 03/15/24 History capsule timolol maleate 0.5 % eye drops 1 drp Eye-Both BID 09/30/23 03/15/24 History mineral oil (Fleet Mineral Oil 118 ml IA DAILY PRN constipation 02/17/24 03/15/24 Rx enema) #133 mL polyethylene glycol 3350 17 17 g PO DAILY #510 grams 02/17/24 03/15/24 Rx gram/dose oral powder (Miralax) sennosides 8.6 mg tablet (Senna 8.6 mg PO HS #30 tabs 02/17/24 03/15/24 Rx Lax) hydrocodone 5 mg-acetaminophen 325 1 tab PO Q6HP PRN Moderate To 03/17/24 Rx mg tablet Severe Pain (4-10) 3 days #12 tabs New Prescriptions to Start Prescriptions: hydrocodone-acetaminophen Pranav Damon Allergies Allergy/AdvReac Type Severity Reaction Status Date / Time indomethacin [From INDOCIN] Allergy Unknown SEIZURES Verified 01/27/24 13:56 Discharge Plan Disposition Patient Disposition: Hospice - Home Condition: Fair Discharge Order Discharge Orders: Discharge Order (Routine); Ordered 03/17/24 Ordered By: Pranav Damon Follow up Plan Follow up with: Chloé Yin MD [Primary Care Provider] - 03/22/24 3:00 pm Prescriptions/Medication Reconciliation: New hydrocodone-acetaminophen 5-325 mg Tablet 1 tab PO Q6HP PRN (Reason: Moderate To Severe Pain (4-10)) 3 Days Qty: 12 0RF Continued timolol maleate 0.5 % drops 1 drp Eye-Both BID atenolol 100 MG tablet 100 mg PO DAILY clopidogrel 75 MG tablet 75 mg PO DAILY ramipril 10 MG capsule 10 mg PO BID hydralazine 10 mg tablet 10 mg PO TID phenytoin sodium extended 100 mg capsule 100 mg PO TID polyethylene glycol 3350 [Miralax] 17 gram/dose powder 17 g PO DAILY Qty: 510 0RF sennosides [Senna Lax] 8.6 mg tablet 8.6 mg PO HS Qty: 30 0RF mineral oil [Fleet Mineral Oil] Enema 118 ml IA DAILY PRN (Reason: constipation) Qty: 133 0RF Rx Instructions: discard any unused portion Discontinued hydrochlorothiazide 25 mg tablet 25 mg PO DAILY aspirin [Mary Kate Aspirin] 325 mg tablet 325 mg PO DAILY atorvastatin 40 MG tablet 40 mg PO HS Problem Reconciliation Problems Reviewed?: Yes Patient Discharge Instructions ACTIVITY: Continue current activity DIET: continue same diet Patient Instructions: Coping With Pain Related to Cancer and Chemotherapy, Cancer Pain Syndromes Providers Primary Care Provider: Chloé Yin Admit Provider: Pranav Damon Attending Provider: Pranav Damon
[2024-03-17] MEDS: HYDRALAZINE 10 MG PO (09:34)
[2024-03-17] MEDS: ATENOLOL 50MG TABLET 100 MG PO (09:35)
[2024-03-17] MEDS: PHENYTOIN 100MG CAPSULE 100 MG PO (09:35)
[2024-03-17] MEDS: CLOPIDOGREL 75MG TAB 75 MG PO (09:35)
[2024-03-17] MEDS: TIMOLOL 0.5% OP (09:36)
[2024-03-17] MEDS: RAMIPRIL 10MG CAPSULE 10 MG PO (09:36)
[2024-03-17] MEDS: OPTH OP (09:36)
[2024-03-17] MEDS: POLYETHYLENE GLYCOL 3350 17 GM PACKET PO (09:36)
== END 2024-03-17 11:52 | disposition hospice, home (50) | DRG 947 ==
LOC: ER 08:40 → 2ND 14:38
PROVIDERS: Admitting Provider Internal Medicine Adolescent Medicine; Emergency Provider Emergency Medicine; PCP Family Medicine; Visit Provider Internal Medicine Adolescent Medicine
DX: G89.3 Neoplasm related pain (acute) (chronic) (principal); E43 Unspecified severe protein-calorie malnutrition; C34.90 Malignant neoplasm of unspecified part of unspecified bronchus or lung; Z51.5 Encounter for palliative care; C79.72 Secondary malignant neoplasm of left adrenal gland; C79.71 Secondary malignant neoplasm of right adrenal gland; Z68.1 Body mass index [BMI] 19.9 or less, adult; K59.00 Constipation, unspecified; H40.9 Unspecified glaucoma; I10 Essential (primary) hypertension; G40.909 Epilepsy, unspecified, not intractable, without status epilepticus
CPT/HCPCS: 36415; 71275; 74174; 80053; 81001; 83690; 83735; 84484; 85025; 85610; 93005; 99285; J2405; Q9967

== ENCOUNTER 2024-04-27 20:07 | Emergency (ER) | payer OTHER, SELFPAY ==
[2024-04-27] VITALS (7 sets, daily range): BP systolic 114–129; BP diastolic 61–75; PULSE 66–78; RESP 16; TEMP 36.6–36.8; O2SAT 93–96; BMI 18.6
--- NOTE | 2024-04-27 20:10 | ED_ITS ---
<Statement entered by Liberty Leos DO - 04/27/24 23:31> I was consulted by the FLORENTIN, and we discussed the complexity of the problems being addressed. I approved the treatment and management plan for this patient's care in the emergency department, thus performing a substantive portion of the medical decision making. Liberty Leos DO Discharge Plan Disposition Patient Disposition: Home, Self-Care Condition: Good Prescriptions Prescriptions: No Action timolol maleate 0.5 % drops 1 drp Eye-Both BID atenolol 100 MG tablet 100 mg PO DAILY clopidogrel 75 MG tablet 75 mg PO DAILY ramipril 10 MG capsule 10 mg PO BID hydralazine 10 mg tablet 10 mg PO TID phenytoin sodium extended 100 mg capsule 100 mg PO TID polyethylene glycol 3350 [Miralax] 17 gram/dose powder 17 g PO DAILY Qty: 510 0RF sennosides [Senna Lax] 8.6 mg tablet 8.6 mg PO HS Qty: 30 0RF mineral oil [Fleet Mineral Oil] Enema 118 ml NM DAILY PRN (Reason: constipation) Qty: 133 0RF Rx Instructions: discard any unused portion hydrocodone-acetaminophen 5-325 mg Tablet 1 tab PO Q6HP PRN (Reason: Moderate To Severe Pain (4-10)) 3 Days Qty: 12 0RF Referrals Follow up/Referrals: Chloé Yin MD [Primary Care Provider] - See instructions Activity Restrictions/Add. Instructions Additional Instructions/Restrictions: The stitches in your hand need to stay in for approximately 2 weeks. The stitches in your forehead can come out in 7 to 10 days. Follow-up with your PCP as needed or return to ER for any worsening signs or symptoms as needed. Clinical Impressions Clinical Impression: Contusion of nose, initial encounter Laceration of face Qualifiers: Encounter type: initial encounter Qualified Code(s): S01.81XA - Laceration without foreign body of other part of head, initial encounter Laceration of hand Qualifiers: Encounter type: initial encounter Foreign body presence: without foreign body Laterality: left Qualified Code(s): S61.412A - Laceration without foreign body of left hand, initial encounter Instructions Patient Instructions: DI for Laceration Repair Discharge ED Provider: Liberty Leos General Adult HPI <CHARLOTTE Klein - Last Filed: 04/27/24 22:30> General Chief complaint: Fall Stated complaint: fall from standing position/head lac Time Seen by Provider: 04/27/24 20:08 History of Present Illness HPI narrative: Patient presents for evaluation after fall. Patient states he was trying to back up into a room and turn around and tripped falling downwards. He has an ironing board close by that he struck with his face and his left hand. He did not lose consciousness. He denies chest pain headache vision changes neck pain back pain shortness of breath fever chills hemoptysis hematochezia melena nausea vomit diarrhea. Related Data Home Medications Medication Instructions Recorded Confirmed atenolol 100 mg tablet 100 mg PO DAILY 09/09/19 03/15/24 clopidogrel 75 mg tablet 75 mg PO DAILY 09/09/19 03/15/24 ramipril 10 mg capsule 10 mg PO BID 09/09/19 03/15/24 hydralazine 10 mg tablet 10 mg PO TID 09/02/23 03/15/24 phenytoin sodium extended 100 mg 100 mg PO TID 09/02/23 03/15/24 capsule timolol maleate 0.5 % eye drops 1 drp Eye-Both BID 09/30/23 03/15/24 Previous Rx's Medication Instructions Recorded mineral oil (Fleet Mineral Oil 118 ml NM DAILY PRN constipation 02/17/24 enema) #133 mL polyethylene glycol 3350 17 17 g PO DAILY #510 grams 02/17/24 gram/dose oral powder (Miralax) sennosides 8.6 mg tablet (Senna 8.6 mg PO HS #30 tabs 02/17/24 Lax) hydrocodone 5 mg-acetaminophen 325 1 tab PO Q6HP PRN Moderate To 03/17/24 mg tablet Severe Pain (4-10) 3 days #12 tabs Allergies Allergy/AdvReac Type Severity Reaction Status Date / Time indomethacin [From INDOCIN] Allergy Unknown SEIZURES Verified 01/27/24 13:56 [facility] <CHARLOTTE Klein - Last Filed: 04/27/24 22:30> [facility] Disclaimer: The information contained in this section may have been updated after the patient was seen, as this information can be updated by other users. Medical History (Updated 04/27/24 @ 22:25 by CHARLOTTE Klein) Seizure disorder Glaucoma History of cataract Allergies Hyperlipidemia Hypertension Skin cancer Surgical History History of surgery S/P hernia surgery History of cholecystectomy Family History Other No significant family history Social History Smoking Status: Current every day smoker tobacco type: cigarettes packs per day: 1 alcohol intake: never substance use type: denies use current occupational status: retired Travel in the last 8 weeks: None <CHARLOTTE Klein - Last Filed: 04/27/24 22:30> ROS Obtained: Yes Systems reviewed as appropriate & no additional complaints except as documented Physical Exam <CHARLOTTE Klein - Last Filed: 04/27/24 22:30> General General appearance: alert and in no apparent distress Head Head exam: other (Patient has ecchymosis over the bridge of his nose and has a laceration in the middle of the left side of the forehead versus a skin tear) Eye Eye exam: Present normal appearance, PERRL and EOMI (No pain with extraocular movements) ENT ENT exam: Present normal exam, normal oropharynx and mucous membranes moist Neck Neck exam: Present normal inspection, full ROM and trachea midline; Absent tenderness or lymphadenopathy Chest Chest inspection: Present normal inspection and symmetric chest wall rise Respiratory Respiratory exam: Present normal lung sounds bilaterally Cardiovascular Cardiovascular exam: Present regular rate and normal rhythm Abdominal Exam Abdominal exam: Present soft and normal bowel sounds; Absent tenderness, guarding or rebound Extremities Exam Extremities exam: Present normal inspection and full ROM; Absent tenderness Back Exam Back exam: Present normal inspection and full ROM; Absent tenderness Neurological Exam Neurological exam: Present alert, oriented X3 and CN II-XII intact Psychiatric Psychiatric exam: Present normal affect and normal mood Skin Skin exam: Present warm, dry and normal color Lymphatic Lymphatic Findings: no adenopathy Other Other exam information: Patient has a skin tear between the interdigital space of the fourth and fifth digits and third and fourth digits of the right hand, he additionally has a laceration versus skin tear in the left middle of his forehead, and he has ecchymosis with a possible skin tear versus laceration over the bridge of his nose Medical Decision Making <CHARLOTTE Klein - Last Filed: 04/27/24 22:30> Medical Records Medical records reviewed: Yes I reviewed the patient's medical records. [place] Inquiry Pt receiving controlled substance: No Vital Signs: 04/27/24 20:07 04/27/24 20:30 04/27/24 21:00 Temperature 97.9 F Temperature Source Oral Pulse Rate 71 75 Pulse Rate [Left] 78 Respiratory Rate 16 Blood Pressure 121/69 117/69 Blood Pressure [Right Arm] 125/75 Blood Pressure Mean [Right Arm] 91 02 Sat by Pulse Oximetry 95 96 95 Oxygen Delivery Method Room Air 04/27/24 21:31 04/27/24 22:00 04/27/24 22:30 Temperature Temperature Source Pulse Rate 74 72 66 Pulse Rate [Left] Respiratory Rate Blood Pressure 123/74 129/75 114/61 Blood Pressure [Right Arm] Blood Pressure Mean [Right Arm] 02 Sat by Pulse Oximetry 96 94 L 93 L Oxygen Delivery Method 04/27/24 22:39 Temperature 98.3 F Temperature Source Oral Pulse Rate 73 Pulse Rate [Left] Respiratory Rate 16 Blood Pressure 114/61 Blood Pressure [Right Arm] Blood Pressure Mean [Right Arm] 02 Sat by Pulse Oximetry Oxygen Delivery Method Room Air Orders (Tests/Meds): ED MEDICATIONS Discontinued Medications Generic Name Dose Route Start Last Admin Trade Name Jaceq PRN Reason Stop Dose Admin Acetaminophen 1,000 mg 04/27/24 20:24 04/27/24 21:38 Acetaminophen 1,000mg/100ml Vial IV 04/27/24 20:25 Not Given ONCE ONE Lidocaine/Epinephrine 20 ml 04/27/24 21:40 04/27/24 22:10 Lidocaine 1% W/Epi 1:100,000 20ml Vial SQ 04/27/24 21:41 20 ml ONCE ONE Administration ORDERS Category Date Time Status CT cervical spine wo con Stat Cat Scan 04/27/24 20:[address] facial bones wo con Stat Cat Scan 04/27/24 20:[address] head/brain wo con Stat Cat Scan 04/27/24 20:22 Completed Hand XR left minimum 3 views [XR hand LT min 3V] Stat Exams 04/27/24 20:24 Completed Medical Decision Narrative: In summary patient is a 78-year-old male who presents to the emergency department for evaluation of ground-level fall. Patient is hemodynamically stable upon arrival, febrile. Physical exam is remarkable for soft tissue injuries primarily a laceration of her skin tear over the left side of his for ehead, over the bridge of his nose, and to the dorsum of his left hand in the interdigital spaces of digits 3 4 and 5. Patient is neurovascularly intact no bony deformities felt on exam patient has no focal neurologic deficits. GCS = 15. Differential diagnosis includes fall with laceration versus skin tear versus intracranial bleed versus skull fracture versus orbit fracture versus nasal fracture versus hand fracture C-spine injury etc. Initial workup will be conducted with CT scan of the head C-spine and facial bones with plain film x- ray of his left hand. Initial interventions include Toradol Tylenol. Initial workup reviewed by me and my informal interpretation is plain film imaging shows no acute fracture of his hand and my informal interpretation of the CT scan shows no acute fractures of his face head or C-spine nor any acute intracranial abnormalities. Upon repeat evaluation patient's wounds were cleaned and examined. Patient had 3 lacerations that were repaired primarily. Please see procedure note. Given this patient is appropriate for discharge for follow-up in 5 to 7 days for the face in 14 days for the hand. <Liberty Leos, DO - Last Filed: 04/27/24 23:31> Vital Signs: 04/27/24 20:07 04/27/24 20:30 04/27/24 21:00 Temperature 97.9 F Temperature Source Oral Pulse Rate 71 75 Pulse Rate [Left] 78 Respiratory Rate 16 Blood Pressure 121/69 117/69 Blood Pressure [Right Arm] 125/75 Blood Pressure Mean [Right Arm] 91 02 Sat by Pulse Oximetry 95 96 95 Oxygen Delivery Method Room Air 04/27/24 21:31 04/27/24 22:00 04/27/24 22:30 Temperature Temperature Source Pulse Rate 74 72 66 Pulse Rate [Left] Respiratory Rate Blood Pressure 123/74 129/75 114/61 Blood Pressure [Right Arm] Blood Pressure Mean [Right Arm] 02 Sat by Pulse Oximetry 96 94 L 93 L Oxygen Delivery Method 04/27/24 22:39 Temperature 98.3 F Temperature Source Oral Pulse Rate 73 Pulse Rate [Left] Respiratory Rate 16 Blood Pressure 114/61 Blood Pressure [Right Arm] Blood Pressure Mean [Right Arm] 02 Sat by Pulse Oximetry Oxygen Delivery Method Room Air Orders (Tests/Meds): ED MEDICATIONS Discontinued Medications Generic Name Dose Route Start Last Admin Trade Name Myron PRN Reason Stop Dose Admin Acetaminophen 1,000 mg 04/27/24 20:24 04/27/24 21:38 Acetaminophen 1,000mg/100ml Vial IV 04/27/24 20:25 Not Given ONCE ONE Lidocaine/Epinephrine 20 ml 04/27/24 21:40 04/27/24 22:10 Lidocaine 1% W/Epi 1:100,000 20ml Vial SQ 04/27/24 21:41 20 ml ONCE ONE Administration ORDERS Category Date Time Status CT cervical spine wo con Stat Cat Scan 04/27/24 20:[address] facial bones wo con Stat Cat Scan 04/27/24 20:[address] head/brain wo con Stat Cat Scan 04/27/24 20:22 Completed Hand XR left minimum 3 views [XR hand LT min 3V] Stat Exams 04/27/24 20:24 Completed ECG Data Tracing #1: I reviewed this ECG and interpreted as documented below: Sinus rhythm with first-degree AV block. NM interval 255 ms. Ventricular rate of [address] changes concerning for ischemia. ECG initial impression date: 04/27/24 ECG initial impression time: 21:06 Procedures <CHARLOTTE Klein - Last Filed: 04/27/24 22:30> Laceration Laceration 1: Site: face Size (cm): 3 Description: linear Depth: simple, single layer Local Anesthetic: lidocaine 1% and with epi Amount of anesthesia used (mL): 5 Pre-repair: wound explored, irrigated extensively and deep structures intact Skin layer closed with: nylon Size (cm): 4-0 Number of sutures: 6 Technique: simple, interrupted Laceration 2: Site: hand (Interdigital space between digits 4 and 5) Side (If applicable): left Size (cm): 1.5 Description: linear Depth: simple, single layer Local Anesthetic: lidocaine 1% and with epi Amount of anesthesia used (mL): 5 Pre-repair: wound explored, irrigated extensively and deep structures intact Skin layer closed with: nylon Size (cm): 4-0 Number of sutures: 4 Technique: simple, interrupted Laceration 3: Site: hand (Interdigital space between digits 3 and 4) Side (If applicable): left Size (cm): 2 Description: linear Depth: simple, single layer Local Anesthetic: lidocaine 1% and with epi Amount of anesthesia used (mL): 5 Pre-repair: wound explored, irrigated extensively and deep structures intact Skin layer closed with: nylon Size (cm): 4-0 Number of sutures: 3 Technique: simple, interrupted Critical Care <CHARLOTTE Klein - Last Filed: 04/27/24 22:30> Critical Care Time Critical Care Time: No
--- NOTE | 2024-04-27 20:22 | CT_ITS ---
PROCEDURE INFORMATION: Exam: CT Cervical Spine Without Contrast Exam date and time: 04/27/2024 8:37 PM Age: 78 years old Clinical indication: Injury or trauma; Fall; Blunt trauma; Additional info: Fall, trauma TECHNIQUE: Imaging protocol: Computed tomography of the cervical spine without contrast. Radiation optimization: All CT scans at this facility use at least one of these dose optimization techniques: automated exposure control; mA and/or kV adjustment per patient size (includes targeted exams where dose is matched to clinical indication); or iterative reconstruction. COMPARISON: PT P.E.T./CT SKULL BASE TO MID-THIGH 09/28/2023 12:43 PM FINDINGS: Bones: Cervical vertebrae normal in height. No acute fracture. Mild anterolisthesis C5 on C6, C6 on C7, and C7 on T1. Minimal retrolisthesis C4 on C5. Exaggerated kyphotic curvature of the upper thoracic spine. Maintained craniocervical junction. Multilevel degenerative changes. Varying degrees of neural foraminal narrowing. Lungs: Emphysematous changes. Mild left apical pleural-parenchymal scarring. Vasculature: Bilateral carotid artery calcifications. Soft tissues: Unremarkable. IMPRESSION: No acute osseous findings.
--- NOTE | 2024-04-27 20:22 | CT_ITS ---
PROCEDURE INFORMATION: Exam: CT Maxillofacial Without Contrast Exam date and time: 04/27/2024 8:39 PM Age: 78 years old Clinical indication: Injury or trauma; Fall; Blunt trauma (contusions or hematomas); Forehead; Additional info: Fall, facial trauma TECHNIQUE: Imaging protocol: Computed tomography of the face without contrast. Radiation optimization: All CT scans at this facility use at least one of these dose optimization techniques: automated exposure control; mA and/or kV adjustment per patient size (includes targeted exams where dose is matched to clinical indication); or iterative reconstruction. COMPARISON: CT HEAD/BRAIN WO CON 04/27/2024 8:35 PM FINDINGS: Orbital cavities: Orbits are normal. Globes are unremarkable. Paranasal sinuses: Normal. No air-fluid levels. Bones: No acute fracture. Soft tissues: Unremarkable. IMPRESSION: No acute findings.
--- NOTE | 2024-04-27 20:22 | CT_ITS ---
PROCEDURE INFORMATION: Exam: CT Head Without Contrast Exam date and time: 04/27/2024 8:35 PM Age: 78 years old Clinical indication: Injury or trauma; Fall; Blunt trauma (contusions or hematomas); Additional info: Fall, trauma TECHNIQUE: Imaging protocol: Computed tomography of the head without contrast. Radiation optimization: All CT scans at this facility use at least one of these dose optimization techniques: automated exposure control; mA and/or kV adjustment per patient size (includes targeted exams where dose is matched to clinical indication); or iterative reconstruction. COMPARISON: MR HEAD/BRAIN WO/W CON 10/01/2023 5:18 PM FINDINGS: Brain: No acute intracranial hemorrhage, midline shift or mass effect. Diffuse brain parenchymal volume loss. Confluent hypodensities within the cerebral white matter and carlos, most consistent with chronic small-vessel ischemic changes. Chronic left occipital lobe encephalomalacia. Old left basal ganglia lacunar infarcts. Cerebral ventricles: No ventriculomegaly. Paranasal sinuses: Visualized sinuses are unremarkable. No fluid levels. Mastoid air cells: Visualized mastoid air cells are well aerated. Bones: Unremarkable. No acute fracture. Soft tissues: Unremarkable. IMPRESSION: No acute intracranial findings.
--- NOTE | 2024-04-27 20:24 | XR_ITS ---
PROCEDURE INFORMATION: Exam: XR Left Hand Exam date and time: 04/27/2024 8:38 PM Age: 78 years old Clinical indication: Injury or trauma; Fall; Laceration; Hand; Left; Additional info: Fall, trauma, laceration TECHNIQUE: Imaging protocol: Radiologic exam of the left hand. Views: 3 or more views. COMPARISON: CR XR HAND LT MIN 3V 11/15/2021 11:05 AM FINDINGS: Bones/joints: Osseous alignment is normal. No acute fracture. No significant arthritic change. Soft tissues: Normal. IMPRESSION: Negative left hand
--- NOTE | 2024-04-27 21:04 | ECG_ITS ---
APPROVED REPORT Exam: Resting ECG HR:73 bpm ECG Measurements Heart Rate 73 AXES RI 255 P 75 QRSd 82 QRS 81 QT 398 T 54 QTc 424 Conclusion SINUS RHYTHM WITH FIRST DEGREE AV BLOCK ABNORMAL ECG Electronically signed by : PRERNA SHAIKH, 04/27/2024 23:44:14
[2024-04-27] MEDS: LIDOCAINE 1% W/EPI 1:100,000 20ML VIAL 20 ML SQ (22:10)
--- NOTE | 2024-04-27 22:48 | PC.NURSE ---
Wounds dressed with non adherent pad and tegaderm, left hand wrapped in curlex, band aid to nose
== END 2024-04-27 22:46 | disposition home or self-care (01) ==
PROVIDERS: Emergency Provider Emergency Medicine; PCP Family Medicine
DX: S01.81XA Laceration without foreign body of other part of head, initial encounter (principal); S61.412A Laceration without foreign body of left hand, initial encounter; W18.30XA Fall on same level, unspecified, initial encounter; F17.210 Nicotine dependence, cigarettes, uncomplicated; I44.0 Atrioventricular block, first degree
CPT/HCPCS: 12013; 12002; 70450; 70486; 72125; 73130; 93005; 96374; 99285

== ENCOUNTER 2024-06-09 13:49 | Emergency (ER) | payer OTHER, SELFPAY ==
[2024-06-09 13:49] VITALS: BP 130/79; PULSE 71; RESP 12; TEMP 36.5; O2SAT 95; BMI 14.0
[2024-06-09 13:54] VITALS: BP 130/79; PULSE 72; O2SAT 95
--- NOTE | 2024-06-09 13:58 | ECG_ITS ---
APPROVED REPORT Exam: Resting ECG HR:94 bpm ECG Measurements Heart Rate 94 AXES QRSd 87 QRS 83 QT 345 T -17 QTc [address] DEVIATION AND MODERATE T-WAVE ABNORMALITY, CONSIDER LATERAL ISCHEMIA [-0.1+ mV T-WAVE IN I/aVL/V5/V6] ST DEVIATION AND MODERATE T-WAVE ABNORMALITY, CONSIDER INFERIOR ISCHEMIA [-0.1+ mV T-WAVE IN II/aVF] ABNORMAL ECG UNCONFIRMED REPORT Electronically signed by : Ramon Cee, 06/09/2024 15:40:50
--- NOTE | 2024-06-09 14:10 | ED_ITS ---
Discharge Plan Disposition Patient Disposition: Xfer [facility] Prescriptions Prescriptions: No Action timolol maleate 0.5 % drops 1 drp Eye-Both BID atenolol 100 MG tablet 100 mg PO DAILY clopidogrel 75 MG tablet 75 mg PO DAILY ramipril 10 MG capsule 10 mg PO BID hydralazine 10 mg tablet 10 mg PO TID phenytoin sodium extended 100 mg capsule 100 mg PO TID polyethylene glycol 3350 [Miralax] 17 gram/dose powder 17 g PO DAILY Qty: 510 0RF sennosides [Senna Lax] 8.6 mg tablet 8.6 mg PO HS Qty: 30 0RF mineral oil [Fleet Mineral Oil] Enema 118 ml MT DAILY PRN (Reason: constipation) Qty: 133 0RF Rx Instructions: discard any unused portion hydrocodone-acetaminophen 5-325 mg Tablet 1 tab PO Q6HP PRN (Reason: Moderate To Severe Pain (4-10)) 3 Days Qty: 12 0RF Referrals Follow up/Referrals: Angelina Dc APRN [Primary Care Provider] - See instructions Clinical Impressions Clinical Impression: Coffee ground emesis, Need for comfort care, Hospice care Fall Qualifiers: Encounter type: initial encounter Qualified Code(s): W19.XXXA - Unspecified fall, initial encounter Discharge ED Provider: Ramon Cee General Adult HPI <Ramon Cee MD - Last Filed: 06/09/24 16:24> General Chief complaint: Fall Stated complaint: Fall Time Seen by Provider: 06/09/24 13:57 Mode of Arrival: EMS Source of Information: Patient and EMS Limitations: No Limitations History of Present Illness HPI narrative: This is a 78-year-old male with a history of metastatic squamous cell carcinoma currently receiving care from home hospice who presents after a fall last night. States that he had a fall from standing at approximately 1030 last night because he took his sleep medication too early which made him unsteady. Reports hitting his head. Denies neck pain. Denies any other injuries. EMS notes an episode of coffee-ground emesis prior to arrival. Otherwise hemodynamically stable. No other complaints. Related Data Home Medications Medication Instructions Recorded Confirmed atenolol 100 mg tablet 100 mg PO DAILY 09/09/19 03/15/24 clopidogrel 75 mg tablet 75 mg PO DAILY 09/09/19 03/15/24 ramipril 10 mg capsule 10 mg PO BID 09/09/19 03/15/24 hydralazine 10 mg tablet 10 mg PO TID 09/02/23 03/15/24 phenytoin sodium extended 100 mg 100 mg PO TID 09/02/23 03/15/24 capsule timolol maleate 0.5 % eye drops 1 drp Eye-Both BID 09/30/23 03/15/24 Previous Rx's Medication Instructions Recorded mineral oil (Fleet Mineral Oil 118 ml MT DAILY PRN constipation 02/17/24 enema) #133 mL polyethylene glycol 3350 17 17 g PO DAILY #510 grams 02/17/24 gram/dose oral powder (Miralax) sennosides 8.6 mg tablet (Senna 8.6 mg PO HS #30 tabs 02/17/24 Lax) hydrocodone 5 mg-acetaminophen 325 1 tab PO Q6HP PRN Moderate To 03/17/24 mg tablet Severe Pain (4-10) 3 days #12 tabs Allergies Allergy/AdvReac Type Severity Reaction Status Date / Time indomethacin [From INDOCIN] Allergy Unknown SEIZURES Verified 01/27/24 13:56 PFS <Ramon Cee MD - Last Filed: 06/09/24 16:24> PFS Disclaimer: The information contained in this section may have been updated after the patient was seen, as this information can be updated by other users. Medical History (Updated 06/09/24 @ 16:30 by Juhi Espinal MD) Seizure disorder Glaucoma History of cataract Allergies Hyperlipidemia Hypertension Skin cancer Surgical History History of surgery S/P hernia surgery History of cholecystectomy Family History Other No significant family history Social History Smoking Status: Never smoker alcohol intake: never substance use type: denies use current occupational status: retired Travel in the last 8 weeks: None <Ramon Cee MD - Last Filed: 06/09/24 16:24> ROS Obtained: Yes All systems reviewed & no additional complaints except as documented Physical Exam <Ramon Cee MD - Last Filed: 06/09/24 16:24> General General appearance: alert, in no apparent distress and cachectic Comment: Dried coffee-ground emesis on patient's shirt and face Head Head exam: other (Abrasion to right maxilla) Eye Eye exam: Present normal appearance, PERRL and EOMI Neck Neck exam: Present normal inspection; Absent tenderness Chest Chest inspection: Present normal inspection; Absent tenderness Respiratory Respiratory exam: Present normal lung sounds bilaterally; Absent respiratory distress Cardiovascular Cardiovascular exam: Present regular rate and normal rhythm Abdominal Exam Abdominal exam: Present soft and distention; Absent tenderness, guarding or rebound Extremities Exam Extremities exam: Present normal inspection; Absent tenderness Back Exam Back exam: Present normal inspection; Absent tenderness Neurological Exam Neurological exam: Present alert and oriented X3 Skin Skin exam: Present warm and dry Medical Decision Making <Ramon Cee MD - Last Filed: 06/09/24 16:24> Medical Records Medical records reviewed: Yes I reviewed the patient's medical records. [place] Inquiry Pt receiving controlled substance: No Vital Signs: 06/09/24 13:49 06/09/24 13:54 06/09/24 14:30 Temperature 97.7 F Temperature Source Oral Pulse Rate 72 104 H Pulse Rate [Left Radial] 71 Respiratory Rate 12 19 Blood Pressure 130/79 130/90 Blood Pressure [Right Arm] 130/79 Blood Pressure Mean 84 99 Blood Pressure Mean [Right Arm] 96 02 Sat by Pulse Oximetry 95 95 95 Lab Data Lab Results 06/09/24 13:57: VBG Lactic Acid 2.5 H 06/09/24 14:00: WBC 33.4 H*, RBC 4.08 L, Hgb 13.3 L, Hct 40.2 L, MCV 98.4 H, MCH 32.7 H, MCHC 33.2, RDW 16.0, Plt Count 402, MPV 8.3, Neut % (Auto) 93.0 H, Lymph % (Auto) 3.6 L, Bonner % (Auto) 2.0, Eos % (Auto) 1.1, Baso % (Auto) 0.3, Neut # (Auto) 31.1 H, Lymph # (Auto) 1.2, Bonner # (Auto) 0.7, Eos # (Auto) 0.4, Baso # (Auto) 0.1, Total Counted 100, Neutrophils % (Manual) 91 H, Lymphocytes % (Manual) 8 L, Eosinophils % (Manual) 1, Platelet Estimate Normal, RBC Morphology Normal, PT 11.0, INR 0.98, Sodium 135 L, Potassium 5.4 H, Chloride 103, Carbon Dioxide 29, Anion Gap 8.4, BUN 39 H, Creatinine 1.20, Estimated GFR 58 L, Est GFR ( Amer) 71, Glucose 86, Calcium 8.8, Total Bilirubin 0.6, AST 63 H, ALT 22, Alkaline Phosphatase 438 H, Total Protein 7.6 D, Albumin 3.4 L, G lobulin 4.2 H, Albumin/Globulin Ratio 0.8 L 06/09/24 14:35: Blood Type A Positive, Antibody Screen Negative 06/09/24 14:00 06/09/24 14:00 Orders (Tests/Meds): ED MEDICATIONS Generic Name Dose Route Start Last Admin Trade Name Freq PRN Reason Stop Dose Admin Hydromorphone HCl 0.25 mg 06/09/24 13:58 Hydromorphone 2mg/Ml Syringe IV 07/09/24 13:57 Q2HP PRN Severe Pain (7-10) Pantoprazole Sodium 80 mg/ 100 mls @ 10 mls/hr 06/09/24 15:00 06/09/24 15:05 Sodium Chloride IV 06/12/24 14:59 Not Given .Q10H EVI Discontinued Medications Generic Name Dose Route Start Last Admin Trade Name Freq PRN Reason Stop Dose Admin Pantoprazole Sodium 80 mg/ 100 mls @ 100 mls/hr 06/09/24 14:00 06/09/24 14:23 Sodium Chloride IV 06/09/24 14:59 100 mls/hr ONCE ONE Administration Lactated Ringer's 1,000 mls @ 999 mls/hr 06/09/24 13:58 06/09/24 14:16 Lactated Ringer's 1000 Ml Bag IV 06/09/24 14:58 999 mls/hr .Q1H1M ONE Administration ORDERS Category Date Time Status Type and Screen Stat BBK 06/09/24 14:35 Completed CBC w/Auto Diff [Complete Blood Count Auto Diff] Stat Lab 06/09/24 14:00 Completed CMP [Comprehensive Metabolic Panel] Stat Lab 06/09/24 14:00 Completed Lactate Venous Stat Lab 06/09/24 13:57 Completed PT/INR [Prothrombin Time INR] Stat Lab 06/09/24 14:00 Completed ECG Data Tracing #1: I reviewed this ECG and interpreted as documented below: ECG initial impression date: 06/09/24 ECG initial impression time: 14:00 Additional Comments: AFib at a rate of 94, QTC 397, normal axis, no concerning ST changes for ischemia Medical Decision Narrative: This is a 78-year-old male with a history of metastatic squamous cell carcinoma currently receiving care from home hospice who presents after a fall from standing last night and coffee-ground emesis. Upon arrival, it was confirmed with the patient and his family that he was DNR/DNI. Patient had clinical decision-making capacity. He appeared cachectic and chronically ill but was in no acute distress at this time. Differential diagnose includes but is not limited to intracranial hemorrhage, cervical spine fracture/dislocation, peptic ulcer disease, variceal hemorrhage. Initial management included 1 L of lactated Ringer's, Dilaudid as needed, and Protonix 80 mg IV. Extensive discussion was had with family regarding workup. Declined CT imaging, though this was considered, due to patient's comfort care status and no acute interventions regardless of what imaging showed. Agreed to pursue with laboratory workup including CBC, CMP, PT/INR, lactate which revealed white blood cell count of 33, hemoglobin of 13.3, lactate of 2.5. Hospice care was contacted given family's desire possible inpatient respite care. At the time of shift change, patient's ultimate disposition was still pending. Inpatient respite care versus home hospice. <Juhi Espinal MD - Last Filed: 06/09/24 16:31> Vital Signs: 06/09/24 13:49 06/09/24 13:54 06/09/24 14:30 Temperature 97.7 F Temperature Source Oral Pulse Rate 72 104 H Pulse Rate [Left Radial] 71 Respiratory Rate 12 19 Blood Pressure 130/79 130/90 Blood Pressure [Right Arm] 130/79 Blood Pressure Mean 84 99 Blood Pressure Mean [Right Arm] 96 02 Sat by Pulse Oximetry 95 95 95 Lab Data Lab results reviewed: Yes I reviewed the patient's lab results. Lab Results 06/09/24 13:57: VBG Lactic Acid 2.5 H 06/09/24 14:00: WBC 33.4 H*, RBC 4.08 L, Hgb 13.3 L, Hct 40.2 L, MCV 98.4 H, MCH 32.7 H, MCHC 33.2, RDW 16.0, Plt Count 402, MPV 8.3, Neut % (Auto) 93.0 H, Lymph % (Auto) 3.6 L, Bonner % (Auto) 2.0, Eos % (Auto) 1.1, Baso % (Auto) 0.3, Neut # (Auto) 31.1 H, Lymph # (Auto) 1.2, Bonner # (Auto) 0.7, Eos # (Auto) 0.4, Baso # (Auto) 0.1, Total Counted 100, Neutrophils % (Manual) 91 H, Lymphocytes % (Manual) 8 L, Eosinophils % (Manual) 1, Platelet Estimate Normal, RBC Morphology Normal, PT 11.0, INR 0.98, Sodium 135 L, Potassium 5.4 H, Chloride 103, Carbon Dioxide 29, Anion Gap 8.4, BUN 39 H, Creatinine 1.20, Estimated GFR 58 L, Est GFR ( Amer) 71, Glucose 86, Calcium 8.8, Total Bilirubin 0.6, AST 63 H, ALT 22, Alkaline Phosphatase 438 H, Total Protein 7.6 D, Albumin 3.4 L, G lobulin 4.2 H, Albumin/Globulin Ratio 0.8 L 06/09/24 14:35: Blood Type A Positive, Antibody Screen Negative Orders (Tests/Meds): ED MEDICATIONS Generic Name Dose Route Start Last Admin Trade Name Freq PRN Reason Stop Dose Admin Hydromorphone HCl 0.25 mg 06/09/24 13:58 Hydromorphone 2mg/Ml Syringe IV 07/09/24 13:57 Q2HP PRN Severe Pain (7-10) Pantoprazole Sodium 80 mg/ 100 mls @ 10 mls/hr 06/09/24 15:00 06/09/24 15:05 Sodium Chloride IV 06/12/24 14:59 Not Given .Q10H EVI Discontinued Medications Generic Name Dose Route Start Last Admin Trade Name Freq PRN Reason Stop Dose Admin Pantoprazole Sodium 80 mg/ 100 mls @ 100 mls/hr 06/09/24 14:00 06/09/24 14:23 Sodium Chloride IV 06/09/24 14:59 100 mls/hr ONCE ONE Administration Lactated Ringer's 1,000 mls @ 999 mls/hr 06/09/24 13:58 06/09/24 14:16 Lactated Ringer's 1000 Ml Bag IV 06/09/24 14:58 999 mls/hr .Q1H1M ONE Administration ORDERS Category Date Time Status Type and Screen Stat BBK 06/09/24 14:35 Completed CBC w/Auto Diff [Complete Blood Count Auto Diff] Stat Lab 06/09/24 14:00 Completed CMP [Comprehensive Metabolic Panel] Stat Lab 06/09/24 14:00 Completed Lactate Venous Stat Lab 06/09/24 13:57 Completed PT/INR [Prothrombin Time INR] Stat Lab 06/09/24 14:00 Completed Medical Decision Narrative: This is a 78-year-old male with a history of metastatic squamous cell carcinoma currently receiving care from home hospice who presents after a fall from standing last night and coffee-ground emesis. Upon arrival, it was confirmed with the patient and his family that he was DNR/DNI. Patient had clinical decision-making capacity. He appeared cachectic and chronically ill but was in no acute distress at this time. Differential diagnose includes but is not limited to intracranial hemorrhage, cervical spine fracture/dislocation, peptic ulcer disease, variceal hemorrhage. Initial management included 1 L of lactated Ringer's, Dilaudid as needed, and Protonix 80 mg IV. Extensive discussion was had with family regarding workup. Declined CT imaging, though this was considered, due to patient's comfort care status and no acute interventions regardless of what imaging showed. Agreed to pursue with laboratory workup including CBC, CMP, PT/INR, lactate which revealed white blood cell count of 33, hemoglobin of 13.3, lactate of 2.5. Hospice care was contacted given family's desire possible inpatient respite care. At the time of shift change, patient's ultimate disposition was still pending. Inpatient respite care versus home hospice. This is Dr. Espinal took over from Dr. Cee at 4 PM. Hospice care was involved with this patient's care and they informed me that they will be accepting the patient patient will be transferred back to the [place] [facility]. They informed me that no prescription for comfort care would be needed and that they would be managing the patient's care from here on out. Patient was discharged to [place]. Critical Care <Ramon Cee MD - Last Filed: 06/09/24 16:24> Critical Care Time Critical Care Time: No
[2024-06-09 14:14] LABS: Basophils # 0.1 K/mm3 (0-0.2); Basophils % 0.3 % (0.1-2.0); Eosinophils # 0.4 K/mm3 (0.0-0.4); Eosinophils % 1.1 % (0.1-12.0); Hematocrit 40.2 % (42.0-52.0); Hemoglobin 13.3 g/dL (14.1-18.0); Lymphocytes # 1.2 K/mm3 (0.7-4.5); Lymphocytes % 3.6 % (10-50); Mean Corpuscular HGB Conc 33.2 g/dL (31.8-35.4); Mean Corpuscular Hemoglobin 32.7 pg (27.0-31.2); Mean Corpuscular Volume 98.4 fl (80-94); Mean Platelet Volume 8.3 fl (7.4-10.4); Monocytes # 0.7 K/mm3 (0.1-1.0); Neutrophils # 31.1 K/mm3 (1.8-7.8); Platelet Count 402 K/mm3 (142-424); Red Blood Count 4.08 M/mm3 (4.60-6.20); White Blood Count 33.4 K/mm3 (4.8-10.8)
[2024-06-09] MEDS: LACTATED RINGERS 1000ML 1,000 ML 999 ML IV (14:16)
[2024-06-09 14:18] LABS: MANUAL DIFFERENTIAL MANUAL DIFFERENTIAL (MANUAL DIFF)
[2024-06-09 14:19] LABS: Chloride 103 mmol/L (98-107); Potassium 5.4 mmoL/L (3.5-5.1); Sodium 135 mmol/L (136-145)
[2024-06-09 14:22] LABS: Alanine Aminotransferase 22 U/L (12-78); Albumin Level 3.4 g/dl (3.5-5.0); Albumin/Globulin Ratio 0.8 (1.1-1.8); Alkaline Phosphatase 438 U/L (38-126); Anion Gap 8.4 mEq/L (5-15); Aspartate Amino Transferase 63 U/L (17-59); Bilirubin,Total 0.6 mg/dl (0.2-1.3); Blood Urea Nitrogen 39 mg/dl (9-20); Calcium 8.8 mg/dl (8.4-10.2); Carbon Dioxide 29 mmol/L (22.0-30.0); Estimated Glomerular Filt Rate 58 ml/min (>60); GFR (African American) 71 ML/MIN (>60); Globulin 4.2 g/dL (1.3-3.2); Glucose 86 mg/dl (74-100); Total Protein,Serum 7.6 g/dl (6.3-8.2)
[2024-06-09 14:23] LABS: Lactate Venous 2.5 mmol/L (0.4-2.0)
[2024-06-09] MEDS: PANTOPRAZOLE SODIUM 80 MG in 0.9 % SODIUM CHLORIDE 100 ML 100 MG IV (14:23)
[2024-06-09 14:30] VITALS: BP 130/90; PULSE 104; RESP 19; O2SAT 95
[2024-06-09 14:35] LABS: INR 0.98 (0.9-1.1)
[2024-06-09 14:43] LABS: Eosinophils % 1 % (0-3); Lymphocytes % 8 % (10-50); Neutrophils % 91 % (42-76); Platelet Estimate Normal; RBC Morphology Normal; Total Cells Counted 100
--- NOTE | 2024-06-09 15:02 | PC.NURSE ---
SPOKE WITH MARIAMA AT HOSPICE, WILL CONTACT PT'S PRIMARY CARE NURSE TO SPEAK WITH FAMILY FOR POC
--- NOTE | 2024-06-09 15:08 | PC.NURSE ---
DAUGHTER UPDATED AT THIS TIME, HOSPICE WILL BE IN CONTACT FOR POSSIBLE RESPITE CARE
--- NOTE | 2024-06-09 15:58 | PC.NURSE ---
miya panchal from hospice at bedside
--- NOTE | 2024-06-09 17:21 | PC.NURSE ---
[facility], pt [facility], ed note will be sufficient for H&P for admission
[2024-06-09 17:30] VITALS: BP 106/77; PULSE 95; RESP 24; TEMP 36.7
[2024-06-09 18:24] LABS: Reflex Lactic Add Lactic Reflex
== END 2024-06-09 17:31 ==
PROVIDERS: Emergency Provider Student in an Organized Health Care Education/Training Program; PCP Nurse Practitioner
DX: K92.0 Hematemesis (principal); E87.5 Hyperkalemia; C34.90 Malignant neoplasm of unspecified part of unspecified bronchus or lung; W18.30XA Fall on same level, unspecified, initial encounter; Z51.5 Encounter for palliative care; Z66 Do not resuscitate; R74.02 Elevation of levels of lactic acid dehydrogenase [LDH]
CPT/HCPCS: 36415; 80053; 83605; 85007; 85025; 85027; 85610; 86850; 93005; 96365; 96366; 96367; 99284; J7120